=== PATIENT | male | born 1945 | race Caucasian/White ===

== ENCOUNTER 2019-12-08 13:19 | Outpatient (CLI) | payer MEDICARE, SELFPAY ==
--- NOTE | 2019-12-08 13:41 | ECHO_ITS ---
Patient Info Name: Kolton Smith Age: 74 years : 1945 Gender: Male Ht: 72 in Wt: 260 lbs BSA: 2.49 m2 HR: 67 bpm BP: 145 / 68 mmHg Heart Rhythm: Sinus Rhythm Technical Quality: Good Exam Date: 12/08/2019 2:01 PM Exam Location: [facility] Patient Status: Outpatient Admit Date: 12/08/2019 Staff Ordering Physician: Arcenio Viveros DO Telephone Clerk: Gerry Palacios RDCS, RT Attending Provider: Arcenio Viveros DO Referring Physician: Felice SALGADO; Exam Type: CA echo doppler color flow Study Info Indications I35.0 - Nonrheumatic aortic (valve) stenosis Complete two-dimensional, color flow and Doppler transthoracic echocardiogram is performed. Summary 1. Complete two-dimensional, color flow and Doppler transthoracic echocardiogram is performed. 2. Left ventricular chamber dimension is normal. 3. Left ventricular systolic function is normal, estimated at 60-65%. 4. There is moderately increased left ventricular wall thickness. 5. The left ventricular diastolic function is grade I diastolic dysfunction. 6. Left atrial chamber dimension is mildly enlarged. 7. There is mild aortic valve stenosis with a peak velocity of 264 cm/s, mean gradient of 14 mmHg, and aortic valve area of 1.8 cm2. 8. There is mild to moderate aortic valve regurgitation. 9. There is moderate aortic valve calcification. 10. There is mild tricuspid valve regurgitation. Left Ventricle Left ventricular chamber dimension is normal. Left ventricular systolic function is normal, estimated at 60-65%. There is moderately increased left ventricular wall thickness. The left ventricular diastolic function is grade I diastolic dysfunction. Right Ventricle Right ventricular chamber dimension is normal. Right ventricular systolic function is normal. Left Atria Left atrial chamber dimension is mildly enlarged. Right Atria Right atrial chamber dimension is normal. Atrial Septum Interatrial septum not well visualized by color flow imaging. Aortic Valve The aortic valve is trileaflet. There is mild aortic valve stenosis with a peak velocity of 264 cm/s, mean gradient of 14 mmHg, and aortic valve area of 1.8 cm2. There is mild to moderate aortic valve regurgitation. There is moderate aortic valve calcification. Pulmonic Valve The pulmonic valve is normal. There is no pulmonic valve stenosis. There is trace pulmonic regurgitation. Mitral Valve The mitral valve has thickened leaflets. There is no mitral valve stenosis. There is trace mitral valve regurgitation. Tricuspid Valve No pulmonary hypertension, estimated pulmonary arterial systolic pressure is 28 mmHg. The tricuspid valve leaflets are normal. There is no significant tricuspid valve stenosis. There is mild tricuspid valve regurgitation. Pericardium/Pleural The pericardium appears normal. There is no pericardial effusion. Inferior Vena Cava Normal inferior vena cava with >50% collapse upon inspiration consistent with normal right atrial pressure, 5 mmHg. Aorta The aortic root size at the sinus of Valsalva is normal. The prox ascending aorta size is normal. Left Ventricular Outflow Tract Name Value Normal LVOT 2D LVOT Diameter
== END 2019-12-08 13:20 | disposition home or self-care (01) ==
PROVIDERS: PCP Internal Medicine; Visit Provider Internal Medicine
DX: I35.0 Nonrheumatic aortic (valve) stenosis (principal); I35.1 Nonrheumatic aortic (valve) insufficiency; I36.1 Nonrheumatic tricuspid (valve) insufficiency
CPT/HCPCS: 93306

== ENCOUNTER 2022-02-07 11:56 | Emergency (ER) | payer MEDICARE, SELFPAY ==
[2022-02-07 12:30] VITALS: BP 150/70; PULSE 76; RESP 20; TEMP 36.6; O2SAT 99
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
== END 2022-02-07 15:05 | disposition home or self-care (01) ==
PROVIDERS: Emergency Provider Registered Nurse; PCP Internal Medicine
DX: T23.262A Burn of second degree of back of left hand, initial encounter (principal); T23.261A Burn of second degree of back of right hand, initial encounter; X08.8XXA Exposure to other specified smoke, fire and flames, initial encounter; E78.5 Hyperlipidemia, unspecified; I10 Essential (primary) hypertension; M10.9 Gout, unspecified; I35.0 Nonrheumatic aortic (valve) stenosis
CPT/HCPCS: 99213; G0463

== ENCOUNTER 2024-04-05 17:54 | Inpatient (IN) | payer MEDICARE, SELFPAY ==
[2024-04-05] VITALS (10 sets, daily range): BP systolic 123–145; BP diastolic 93–107; PULSE 66–137; RESP 18–25; TEMP 36.3–36.6; O2SAT 96–100; BMI 37.3; BMI 37.5
--- NOTE | ~2024-04-05 | XR_ITS ---
CHEST RADIOGRAPH, PA AND LATERAL CLINICAL HISTORY: CP . COMPARISON: 12/15/2009 TECHNIQUE: PA and lateral views of the chest. FINDINGS The cardiomediastinal silhouette is unremarkable. Blunting of the right costophrenic sulcus is identified suggesting a small right-sided pleural effusi on. Increased interstitial markings are identified bilaterally, findings suggesting mild pulmonary vascul ar congestion. The remainder of the lungs are clear. IMPRESSION: Mild pulmonary vascular congestion with small right-sided pleural effusion. Reviewed, dictated and finalized at location A. EVENT SPECIALIST
--- OUTSIDE RECORDS SUMMARY | 2024-04-05 17:57 | XMS_ITS | Clinical Summary ---
Author Organization [facility] Address [address] [place] [address] Care Team Providers Care Surveillance Sensor Officer Name Role Phone Unavailable Primary Care Provider Unavailabl e Source Comments [facility],non-owned Affiliates and Associated Physician Practices is amultiple site organization consisting of ambulatory clinics and hospital sitesin [place], [place], [place] and [place]. This disclosure is being madepursuant to the Care Everywhere program and may not contain all information available regarding this patient. Last updated 17.[facility] [employer] Social History Tobacco Use Types Packs/Day Years Used Date Smoking Tobacco: Never Assessed Sex and Gender Information Value Date Recorded Sex Assigned at Not on file Gender Identity Not on file Sexual Orientation Not on file Plan of Treatment Health Maintenance Due Date Last Done Comments HEPATITIS C SCREENING 09/15/1963 DTAP/TDAP/TD VACCINES (1 - Tdap) 1964 PNEUMOCOCCAL VACCINE 50+ (1 of 1 - PCV) 09/20/1995 ZOSTER VACCINE (1 of 2) 09/20/1995 Respiratory Syncytial Virus (RSV) Vaccine Pt: or over 60 yrs (1 - 1-dose 75+ series) 2020 COVID-19 VACCINE ( - 2023-2 5 season) 2023 INFLUENZA VACCINE (#1) 2023 DEPRESSION SCREENING 02/25/2024 MEDICARE AWV CALENDAR YEAR 2024 HEPATITIS B VACCINE Aged Out No longe r eligible based on patient's age to complete this topic HIB VACCINE Aged Out No longer eligi ble based on patient's age to complete this topic HPV VACCINE Aged Out No longer eligi ble based on patient's age to complete this topic MENINGOCOCCAL (Group B) VACCINE Aged Out No longer eligible based on patient's age to complete this topic MENINGOCOCCAL VACCINE Aged Out No karla tadeo eligible based on patient's age to complete this topic
--- OUTSIDE RECORDS SUMMARY | 2024-04-05 17:57 | XMS_ITS | Encounter Summary ---
Author Organization [facility] Address [address] [place] [address] Care Team Providers Care Engineering Mgr Name Role Phone Arcenio Viveros DO Primary Care Provider [phone]- [phone] Arcenio Viveros DO Primary Care Provider +1- [phone] Encounter Details Date Type Department Care Team (Late st Contact Info) Description 07/10/2016 Orders Only [facility] ProviderDarrin MD [address] [place] [id number] Social History Tobacco Use Types Packs/Day Years Used Date Smoking Tobacco: Never Assessed Sex and Gender Information Value Date Recorded Sex Assigned at Not on file 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 Historical Provider [facility] Final Result documented in this encounter Visit Diagnoses Not on filedocumented in this encounter Care Teams Engineering Mgr Relationship Specialty Start Date End Date Arcenio Viveros DO PCP - General 06/12/15 08/17/18 Arcenio Viveros DO PCP - General Internal Medicine 08/18/18 documented as of this encounter
--- OUTSIDE RECORDS SUMMARY | 2024-04-05 17:57 | XMS_ITS | Referral Summary ---
Author Organization [facility] Address [address] [place] [address] Care Team Providers Care Wood Carving Lathe Operator Name Role Phone Unavailable Primary Care Provider Unavailabl e Source Comments [facility],non-owned Affiliates and Associated Physician Practices is amultiple site organization consisting of ambulatory clinics and hospital sitesin [place], [place], [place] and [place]. This disclosure is being madepursuant to the Care Everywhere program and may not contain all information available regarding this patient. Last updated 17.[facility] [employer] Social History Tobacco Use Types Packs/Day Years Used Date Smoking Tobacco: Never Assessed Sex and Gender Information Value Date Recorded Sex Assigned at Not on file Gender Identity Not on file Sexual Orientation Not on file Plan of Treatment Not on file
--- OUTSIDE RECORDS SUMMARY | 2024-04-05 17:57 | XMS_ITS | Patient Health Summary ---
Author Organization [facility] Address [address] [place] [address] Care Team Providers Care Anesthetist Name Role Phone Unavailable Primary Care Provider Unavailabl e Note from [facility],non-owned Affiliates and Associated Physician Practices is amultiple site organization consisting of ambulatory clinics and hospital sitesin [place], [place], [place] and [place]. This disclosure is being madepursuant to the Care Everywhere program and may not contain all information available regarding this patient. Last updated 17.[facility] Social History Tobacco Use Types Packs/Day Years Used Date Smoking Tobacco: Never Assessed Sex and Gender Information Value Date Recorded Sex Assigned at Not on file Gender Identity Not on file Sexual Orientation Not on file Procedures * DERMATOPATHOLOGY(Performed 04/10/2022) * DERMATOPATHOLOGY(Performed 07/23/2013) * DERMATOPATHOLOGY(Performed 06/24/2013) Results * DERMATOPATHOLOGY (04/10/2022 3:33 AM CUSTOMS INVESTIGATOR) Only the most recent of3 resultswithin the time period is included. Case Report Dermatopathology Report Case: [id number] Authorizing Provider: Sajan Katz MD Collected: 04/10/2022 03:33 AM Ordering Location: [facility] Lab Received: 04/12/2022 07:43 AM Pathologist: Ilda Huitron MD Specimen: Skin, left episcopal 3 11:07 AM [facility] Final Diagnosis Specimen A. 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 The specimen consists of a shave biopsy measuring 8x7x1 mm. Jar 0. 11:07 AM [facility] Microscopic Description Specimen A. SKIN, left episcopal: The epidermis shows parakeratosis, full thickness disorderly maturation of keratinocytes, mitoses at different levels, and dyskeratotic cells. There is prominent pigmentation in some of the keratinocytes. 11:07 AM [facility] Disclaimer An external and internal positive and negative controls are appropriate for the histochemical, immunohistochemical and immunofluorescence stain(s) in this case (if any), except where stated explicitly. The performance characteristics of the stain(s) cited in this report were developed and its performance characteristic determined by the Dermatopathology Laboratory at [facility], directed by Dr. Jany Kumari. These tests need not be, and therefore are not, approved by the [place] Food and Drug Administration. The tests are used for clinical purposes. Billing Codes Specimen Charges Stain Charges 38700 1 3 11:07 AM [facility] Embedded Images 3 11:07 AM [facility] Pathology/Cytolo gy TISSUE SPECIMEN FROM SKIN / Unknown 04/10/2022 3:33 AM CUSTOMS INVESTIGATOR 04/12/2022 7:43 AM [facility] Sajan Katz MD LAB - PATHOLOGY/CYTO LOGY ORDERABLES DERMATOPATHOLOGY LABORATORY [facility] - Department of Dermatology [address], [address] [phone]
--- OUTSIDE RECORDS SUMMARY | 2024-04-05 17:57 | XMS_ITS | Encounter Summary ---
Author Organization [facility] Address [address] [place] [address] Care Team Providers Care Corporate Strategy Intern Name Role Phone Unavailable Primary Care Provider Unavailabl e Encounter Details Date Type Department Care Team (Late st Contact Info) Description 04/12/2022 Lab Requisition [facility] DermPath Lab [address] [place] [id number] Sajan Katz MD [address] [place] [address] Social History Tobacco Use Types Packs/Day Years Used Date Smoking Tobacco: Never Assessed Sex and Gender Information Value Date Recorded Sex Assigned at Not on file Gender Identity Not on file Sexual Orientation Not on file documented as of this encounter Plan of Treatment Not on file documented as of this encounter Procedures Procedure Name Priority Date/Time Associated Diagnosis Comments DERMATOPATHOLOGY Routine 04/10/2022 3:33 AM DOCUMENT REVIEW SPECIALIST documented in this encounter Results * DERMATOPATHOLOGY (04/10/2022 3:33 AM DOCUMENT REVIEW SPECIALIST) Case Report Dermatopathology Report Case: [id number] Authorizing Provider: Sajan Katz MD Collected: 04/10/2022 03:33 AM Ordering Location: [facility] DermPath Lab Received: 04/12/2022 07:43 AM Pathologist: Ilda Huitron MD Specimen: Skin, left jew 11:07 AM DOCUMENT REVIEW SPECIALIST DERMATOPATHOLOGY LABORATORY Final Diagnosis Specimen A. 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 The specimen consists of a shave biopsy measuring 8x7x1 mm. Jar 0. 3 11:07 AM [facility] DERMATOPATHOLOGY LABOR[facility]ORY Microscopic Description Specimen A. SKIN, left jew: The epidermis shows parakeratosis, full thickness disorderly maturation of keratinocytes, mitoses at different levels, and dyskeratotic cells. There is prominent pigmentation in some of the keratinocytes. 3 11:07 AM [facility] DERMATOPATHOLOGY [facility] Disclaimer An external and internal positive and negative controls are appropriate for the histochemical, immunohistochemical and immunofluorescence stain(s) in this case (if any), except where stated explicitly. The performance characteristics of the stain(s) cited in this report were developed and its performance characteristic determined by the Dermatopathology Laboratory at [facility], directed by Dr. Jany Kumari. These tests need not be, and therefore are not, approved by the [place] Food and Drug Administration. The tests are used for clinical purposes. Billing Codes Specimen Charges Stain Charges 49949 1 3 11:07 AM [facility] DERMATOPATHOLOGY [facility]ORATORY Embedded Images 3 11:07 AM [facility]MATOP[facility]Y [facility] Pathology/Cytolo gy TISSUE SPECIMEN FROM SKIN / Unknown 04/10/2022 3:33 AM DOCUMENT REVIEW SPECIALIST 04/12/2022 7:43 AM [facility] Sajan Katz MD LAB - PATHOLOGY/CYTO LOGY ORDERABLES DERMATOPATHOLOGY LABORATORY [facility] - Department of Dermatology [address], [address] [phone] documented in this encounter Visit Diagnoses Not on filedocumented in this encounter
--- OUTSIDE RECORDS SUMMARY | 2024-04-05 17:57 | XMS_ITS | Clinical Summary ---
Author Organization [facility] [address] Address [address] [place] [address] Care Team Providers Care Music Instructor Name Role Phone Arcenio Viveros DO Primary Care Provider +1- [phone] Allergies Active Allergy Reactions Criticality Noted Date Comments Penicillin G Rash Medium 09/09/2018 Penicillins Rash Medium 10/12/2019 Medications hydroCHLOROthi azide (HYDRODIURIL) 25 mg tablet Take 1 tablet (25 mg total) by mouth daily Active celecoxib (CeleBREX) 200 mg capsule Take 1 capsule (200 mg total) by mouth daily Active allopurinol (ZYLOPRIM) 300 mg tablet Take 100 mg by mouth daily Active lisinopril (PRINIVIL,ZEST RIL) 10 mg tablet Take 1 tablet (10 mg total) by mouth daily Active amlodipine-day rvastatin (CADUET) 5-40 mg per tablet 0 Active vitamins A,C,E-zinc-copy preparer per 7,160-113-100 etii-ka-vqzh tablet,delayed release (DR/EC) Take by mouth Active tcny-cxgrnu-xt lzujqv-Y2-V-Mn 500-400-667 mg-mg-unit capsule Take by mouth Active bacitracin 500 unit/gram ointment Apply topically daily 2 Active clindamycin (CLEOCIN) 300 mg capsule TAKE 1 CAPSULE BY MOUTH EVERY 8 HOURS 2 Active triamcinolone (KENALOG) 0.5 % cream triamcinolone acetonide 0.5 % topical cream 1 APPLIC TOPICAL DAILY NEEDED FOR DERMATITIS Active amLODIPine (NORVASC) 5 mg tablet Take 1 tablet (5 mg total) by mouth daily 4 Active atorvastatin (LIPITOR) 40 mg tablet Take 1 tablet (40 mg total) by mouth daily 4 Active benzonatate (TESSALON) 200 mg capsuleIndicat ions:Acute pansinusitis, recurrence not specified Take 1 capsule (200 mg total) by mouth 3 (three) times a day as needed for cough keep tessalon out of reach of children, especially children under the age of 10, due to possible serious risk such as if ingested by children under the age of 10. 30 capsule 4 Active Active Problems Problem Noted Date Diagnosed Date Osteoarthritis 11/21/2021 Arthralgia of right knee 09/26/2021 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/2019 Encounters Date Type Department Care Team Description 01/16/2024 Telephone [facility] Organization [address] [place] [id number] Annelise Vizcarra MA Successful Phone Call (Med adherence) 01/05/2024 Telephone [facility] Organization [address] [place] [id number] Liane Magallanes Unsuccessful Phone Call 1 ([facility] Med Adherence) 01/05/2024 ACO Quality [facility] Organization [address] [place] [phone] Samanta Mason from Last 3 Months Surgical History Surgery Date Site/Laterality Comments BACK SURGERY Medical History Medical History Date Comments Aortic stenosis Family History Relation Name Status Comments Father (Age 93) Mother (Age 92) Social History Tobacco Use Types Packs/Day Years Used Date Smoking Tobacco: Never Smokeless Tobacco: Current Alcohol Use Standard Drinks/Week Comments Yes 0 (1 standard drink = 0.6 oz pur e alcohol) 2 beer a day Sex and Gender Information Value Date Recorded Sex Assigned at Not on file 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 Gender Identity Not on file Sexual Orientation Not on file Obstetrics History Last Filed Vital Signs Vital Sign Reading Time Taken Comments Blood Pressure 136/80 12/22/2023 12:40 PM CDT Pulse 88 12/22/2023 12:40 PM CDT Temperature 36.8 C (98.3 F) 12/22/2023 11:48 AM CDT Respiratory Rate 18 12/22/2023 11:48 AM CDT Oxygen Saturation 96% 12/22/2023 12:40 PM CDT Inhaled Oxygen Concentration - - Weight 122 kg (269 lb) 12/22/2023 12:40 PM CDT Height 182.9 cm (6') 12/22/2023 12:40 PM CDT Body Mass Index 36.48 12/22/2023 12:40 PM CDT Plan of Treatment Health Maintenance Due Date Last Done Comments Depression Screening 1945 Fall Risk Assessment 1945 Hepatitis C Screening 1945 DTaP/Tdap/Td Vaccine (1 - Tdap) 1956 Hepatitis B Screening 09/20/1963 Zoster Vaccine (1 of 2) 09/20/1995 Pneumococcal vaccine 65+ (1 of 1 - PCV) 2010 Well Visit 65+ 2010 Influenza Vaccine (#1) 2023 01/01/2019, 2015 [place] [address] [place] [address] [place] [address] Care Teams Music Instructor Relationship Specialty Start Date End Date Arcenio Viveros DO PCP - General Internal Medicine 08/18/18
--- OUTSIDE RECORDS SUMMARY | 2024-04-05 17:57 | XMS_ITS | Referral Summary ---
Author Organization [facility] [place] [address] Address [address] [place] [address] Care Team Providers Care Fiber Optic Splicer Name Role Phone Arcenio Viveros DO Primary Care Provider +1- [phone] Encounters Date Type Department Care Team Description 01/16/2024 Telephone [facility] Accountable Care Organization [address] [place] [phone] Annelise Vizcarra MA Successful Phone Call (Med adherence) 01/05/2024 Telephone [facility] Accountable Care Organization [address] [place] [address] Liane Magallanes Unsuccessful Phone Call 1 ([facility] Med Adherence) 01/05/2024 ACO Quality [facility] Accountable Care Organization [address] [place] [address] Samanta Mason from Last 3 Months Allergies Active Allergy Reactions Criticality Noted Date [...] 5-40 mg per tablet 0 Active vitamins A,C,E-zinc-millinery copyist per 7,160-113-100 kgua-ht-hoha tablet,delayed release (DR/EC) Take by mouth Active lkjh-dgobeu-oi bvyhmp-P9-T-Mn 500400-667 mg-mg-unit capsule Take by mouth Active bacitracin [...] knee 09/26/2021 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/2019 Social History Tobacco Use Types Packs/Day Years Used Date Smoking Tobacco: Never Smokeless Tobacco: Current Alcohol Use Standard Drinks/Week Comments Yes 0 (1 standard drink = 0.6 oz pur e alcohol) 2 beer a day Sex and Gender Information Value Date Recorded Sex Assigned at Not on file 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
--- NOTE | 2024-04-05 18:01 | ECG_ITS ---
Test Date: 2024-04-05 18:05:27 Measurements Intervals [place] Rate: 126 P: 0 NE: 0 QRS: -32 QRSD: 90 T: 97 QT: 297 QTc: 430 Interpretive Statements ATRIAL FIBRILLATION WITH RAPID VENTRICULAR RESPONSE VENTRICULAR PREMATURE COMPLEX LEFT AXIS DEVIATION LOW QRS VOLTAGE IN PRECORDIAL LEADS CONSIDER INFERIOR INFARCT, AGE INDETERMINATE BORDERLINE ST-T WAVE ABNORMALITY- HIGH LATERAL LEADS BASELINE ARTIFACT- I, II, III, AVR, AVL, AVF, V1-V2, V4-V6 ABNORMAL ECG No previous ECG available for comparison Electronically Signed On 04-05-2024 20:27:42 WAREHOUSE GUARD by Santino Amaya D.O.
[2024-04-05 18:20] LABS: Basophils Percent Auto 0.5 % (0.2-1.2); Eosinophils Absolute Auto 0.3 K/mm3 (0-0.3); Eosinophils Percent Auto 4.3 % (0-4.4); Hemoglobin 14.7 g/dL (14.0-18.0); Immature Granulocyte Absolute 0.03 K/mm3 (0.00-0.031); Immature Granulocyte Percent A 0.5 % (0-0.5); Lymphocytes Absolute Auto 1.63 K/mm3 (0.9-3.2); Lymphocytes Percent Auto 24.8 % (18.3-44.2); Mean Corpuscular HGB Conc 34.2 g/dl (32-36); Mean Corpuscular Hemoglobin 32.4 pg (26-34); Mean Corpuscular Volume 94.7 fl (80-100); Mean Platelet Volume 10.7 fl (7.4-10.4); Monocytes Absolute Auto 0.9 K/mm3 (0.1-0.6); Monocytes Percent Auto 13.7 % (2.6-8.5); Neutrophils Absolute Auto 3.7 K/mm3 (1.3-6.7); Neutrophils Percent Auto 56.2 % (45.5-73.1); Platelet Count Result 205 k/mm3 (150-375); Red Blood Count 4.54 M/mm3 (4.6-6.20); White Blood Count 6.6 K/mm3 (4.5-10.0)
[2024-04-05 18:34] LABS: Prothrombin Time 12.9 Seconds (11.1-14.7)
[2024-04-05 18:35] LABS: Partial Thromboplastin Time 27.1 Seconds (22.3-36.8)
[2024-04-05] MEDS: dilTIAZem HCl INJ 25 MG/5 ML VIAL 10 MG IV PUSH (19:23)
[2024-04-05 19:32] LABS: Alanine Aminotransferase 38 U/L (6-50); Alkaline Phosphatase 63 U/L (38-126); Anion Gap 8 mmol/L (4-12); Aspartate Amino Transferase 30 U/L (17-59); Bilirubin,Total 0.7 mg/dL (0.2-1.3); Blood Urea Nitrogen 17 mg/dL (9-20); Calcium 9.1 mg/dL (8.4-10.2); Carbon Dioxide 22 mmol/L (22-30); Chloride 106 mmol/L (98-107); Estimated CRCL calculation 95 ml/min; Estimated Glomerular Filt Rate > 60; Glucose 88 mg/dL (65-110); Lipase 79 U/L (23-300); Potassium 3.9 mmol/L (3.4-5.0); Sodium 136 mmol/L (137-145)
[2024-04-05] MEDS: ASPIRIN 81 MG CHEWABLE TABLET 324 MG PO (19:41)
[2024-04-05 19:43] LABS: Troponin I < 0.012 ng/mL (0.000-0.034)
--- OUTSIDE RECORDS SUMMARY | 2024-04-05 19:46 | XMS_ITS | Encounter Summary ---
Author Organization [facility] Address [address] [place] [address] Care Team Providers Care Radiology Clerk Name Role Phone Unavailable Primary Care Provider Unavailabl e Encounter Details Date Type Department Care Team (Late st Contact Info) Description 04/12/2022 Lab Requisition [facility] DermPath Lab [address] [place] [id number] Sajan Katz MD [address] [address] Social History Tobacco Use Types Packs/Day [...] Diagnosis Comments DERMATOPATHOLOGY Routine 04/10/2022 3:33 AM LAMP DECORATOR documented in this encounter Results * DERMATOPATHOLOGY (04/10/2022 3:33 AM LAMP DECORATOR) Case Report Dermatopathology Report Case: [id number] Authorizing Provider: Sajan Katz MD Collected: 04/10/2022 03:33 AM Ordering Location: [facility] Derm[facility] Lab Received: 04/12/2022 07:43 AM Pathologist: Ilda Huitron MD Specimen: Skin, left jehovah's witness 11:07 AM LAMP DECORATOR DERMATOPATHOLOGY LABORATORY Final Diagnosis Specimen A. 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 DERMATOPATHOLOGY LABORATORY Clinical History Pigmented AK vs BCCA vs MM Path#[id number] 3 11:[address] [facility] DERMATOPATHOLOGY LABORATORY Gross Description Specimen A: Received is one formalin filled container labeled with the patient's name and designated left jehovah's witness. The specimen consists of a shave biopsy measuring 8x7x1 mm. Jar 0. 3 11:[address] [facility] DERMATOPATHOLOGY LABORATORY Microscopic Description Specimen A. SKIN, left jehovah's witness: The epidermis shows parakeratosis, full thickness disorderly maturation of keratinocytes, mitoses at different levels, and dyskeratotic cells. There is prominent pigmentation in some of the keratinocytes. 3 11:[address] [facility] DERMATOPATHOLOGY LABORATORY Disclaimer An external and internal positive and negative controls are appropriate for the histochemical, immunohistochemical and immunofluorescence stain(s) in this case (if any), except where stated explicitly. The performance characteristics of the stain(s) cited in this report were developed and its performance characteristic determined by the Dermatopathology Laboratory at [facility], directed by Dr. Jany Kumari. These tests need not be, and therefore are not, approved by the [place] Food and Drug Administration. The tests are used for clinical purposes. Billing Codes Specimen Charges Stain Charges 33670 1 3 11:[address] [facility] DERMATOPATHOLOGY LABORATORY Embedded Images 3 11:[address] [facility] DERMATOPATHOLOGY LABORATORY Pathology/Cytolo gy TISSUE SPECIMEN FROM SKIN / Unknown 04/10/2022 3:33 AM LAMP DECORATOR 04/12/2022 7:[address] [facility] Sajan Katz MD LAB - PATHOLOGY/CYTO LOGY ORDERABLES DERMATOPATHOLOGY LABORATORY [facility] - Department of Dermatology [address], [address] [phone] documented in this encounter Visit Diagnoses Not on filedocumented in this encounter
--- OUTSIDE RECORDS SUMMARY | 2024-04-05 19:46 | XMS_ITS | Referral Summary ---
Author Organization [facility] Address [address] [place] [address] Care Team Providers Care Stone Setter Apprentice Name Role Phone Unavailable Primary Care Provider Unavailabl e Source Comments [facility],non-owned Affiliates and Associated Physician Practices is amultiple site organization consisting of ambulatory clinics and hospital sitesin [place], [place], [place]. This disclosure is being madepursuant to the Care Everywhere program and may not contain all information available regarding this patient. Last updated 17.[facility] [employer] Social History Tobacco Use Types Packs/Day Years Used Date Smoking Tobacco: Never Assessed Sex and Gender Information Value Date Recorded Sex Assigned at Not on file Gender Identity Not on file Sexual Orientation Not on file Plan of Treatment Not on file
--- OUTSIDE RECORDS SUMMARY | 2024-04-05 19:46 | XMS_ITS | Patient Health Summary ---
Author Organization [facility] Address [address] [place] [address] Care Team Providers Care Plate Worker Name Role Phone Unavailable Primary Care Provider Unavailabl e Note from [facility],non-owned Affiliates and Associated Physician Practices is amultiple site organization consisting of ambulatory clinics and hospital sitesin [place], [place], [place] and [place]. This disclosure is being madepursuant to the Care Everywhere program and may not contain all information available regarding this patient. Last updated 17.[facility] [employer] Social History Tobacco Use Types Packs/Day Years Used Date Smoking Tobacco: Never Assessed Sex and Gender Information Value Date Recorded Sex Assigned at Not on file Gender Identity Not on file Sexual Orientation Not on file Procedures * DERMATOPATHOLOGY(Performed 04/10/2022) * DERMATOPATHOLOGY(Performed 07/23/2013) * DERMATOPATHOLOGY(Performed 06/24/2013) Results * DERMATOPATHOLOGY (04/10/2022 3:33 AM RETAIL PROPERTY MANAGER) Only the most recent of3 resultswithin the time period is included. Case Report Dermatopathology Report Case: [id number] Authorizing Provider: Sajan Katz MD Collected: 04/10/2022 03:33 AM Ordering Location: [facility] DermPath Lab Received: 04/12/2022 07:43 AM Pathologist: Ilda Huitron MD Specimen: Skin, left islam 3 11:07 AM [facility] DERMATOPATHOLOGY LABORATORY Final Diagnosis Specimen A. 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 The specimen consists of a shave biopsy measuring 8x7x1 mm. Jar 0. 11:07 AM [facility] DERMATOPATHOLOGY LABORATORY Microscopic Description Specimen A. SKIN, left islam: The epidermis shows parakeratosis, full thickness disorderly maturation of keratinocytes, mitoses at different levels, and dyskeratotic cells. There is prominent pigmentation in some of the keratinocytes. 11:07 AM [facility] DERMATOPATHOLOGY LABORATORY Disclaimer An external and internal positive and negative controls are appropriate for the histochemical, immunohistochemical and immunofluorescence stain(s) in this case (if any), except where stated explicitly. The performance characteristics of the stain(s) cited in this report were developed and its performance characteristic determined by the Dermatopathology Laboratory at [facility], directed by Dr. Jany Kumari. These tests need not be, and therefore are not, approved by the [place] Food and Drug Administration. The tests are used for clinical purposes. Billing Codes Specimen Charges Stain Charges 22667 1 3 11:07 AM [facility] DERMATOPATHOLOGY LABORATORY Embedded Images 3 11:07 AM [facility] DERMATOPATHOLOGY LABORATORY Pathology/Cytolo gy TISSUE SPECIMEN FROM SKIN / Unknown 04/10/2022 3:33 AM RETAIL PROPERTY MANAGER 04/12/2022 7:43 AM [facility] Sajan Katz MD LAB - PATHOLOGY/CYTO LOGY ORDERABLES DERMATOPATHOLOGY LABORATORY [facility] - Department of Dermatology [address] [phone]
--- OUTSIDE RECORDS SUMMARY | 2024-04-05 19:46 | XMS_ITS | Clinical Summary ---
Author Organization [facility] Address [address] [place] [address] Care Team Providers Care Fractionation Supervisor Name Role Phone Unavailable Primary Care Provider Unavailabl e Source Comments [facility],non-owned Affiliates and Associated Physician Practices is amultiple site organization consisting of ambulatory clinics and hospital sitesin [place], [place], [place] and [place]. This disclosure is being madepursuant to the Care Everywhere program and may not contain all information available regarding this patient. Last updated 17.[facility] [employer] Social History Tobacco Use Types Packs/Day Years [...]
--- OUTSIDE RECORDS SUMMARY | 2024-04-05 19:47 | XMS_ITS | Referral Summary ---
Author Organization [facility] [place] [address] Address [address] [place] [address] Care Team Providers Care Cloth Framer Name Role Phone Arcenio Viveros DO Primary Care Provider +1- [phone] Encounters Date Type Department Care Team Description 01/16/2024 Telephone [facility] Accountable Care Organization [address] [place] [phone] Annelise Vizcarra MA Successful Phone Call (Med adherence) 01/05/2024 Telephone [facility] Accountable Care Organization [address] [place] [phone] Liane Magallanes Unsuccessful Phone Call 1 ([facility] Med Adherence) 01/05/2024 ACO Quality [facility] Accountable Care Organization [address] [place] [phone] Samanta Mason from Last 3 Months Allergies [...] 5-40 mg per tablet 0 Active vitamins A,C,E-zinc-service technician copier per 7,160-113-100 vdbg-rq-buqp tablet,delayed release (DR/EC) Take by mouth Active zjvg-ptibll-ue ocxosp-M3-D-Mn 500400-667 mg-mg-unit capsule Take by mouth Active [...] on file 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
--- OUTSIDE RECORDS SUMMARY | 2024-04-05 19:47 | XMS_ITS | Clinical Summary ---
Author Organization [facility] [place] [address] Address [address] [place] [address] Care Team Providers Care Vest Presser Name Role Phone Arcenio Viveros DO Primary Care Provider +1- [phone] Allergies Active Allergy Reactions Criticality Noted Date [...] (10 mg total) by mouth daily Active amlodipine-dya rvastatin (CADUET) 5-40 mg per tablet 0 Active vitamins A,C,E-zinc-endoscope technician per 7,160-113-100 effv-jo-husi tablet,delayed release (DR/EC) Take by mouth Active hecu-eiuhbn-va hqjuft-F9-H-Mn 500-400-667 mg-mg-unit capsule Take by mouth Active [...] Type Department Care Team Description 01/16/2024 Telephone [facility] Care Organization [address] [place] [phone] Annelise Vizcarra MA Successful Phone Call (Med adherence) 01/05/2024 Telephone [facility] Care Organization [address] [place] [address] 227[address] Liane Magallanes Unsuccessful Phone Call 1 ([facility] Med Adherence) 01/05/2024 ACO Quality [facility] Care Organization [address] [place] [phone] Samanta Mason from Last 3 Months Surgical [...] on file 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
--- OUTSIDE RECORDS SUMMARY | 2024-04-05 19:47 | XMS_ITS | Encounter Summary ---
Author Organization [facility] Address [address] [place] [address] Care Team Providers Care Employment Case Manager Name Role Phone Arcenio Viveros DO Primary Care Provider +1- [phone] Arcenio Viveros DO Primary Care Provider +1- [phone] Encounter Details Date Type Department Care Team (Late st Contact Info) Description 07/10/2016 Orders Only [facility] ProviderDarrin MD [address] [place] [address] Social History Tobacco Use Types Packs/Day Years Used Date Smoking Tobacco: Never Assessed Sex and Gender Information Value Date Recorded Sex Assigned at Not on file 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
--- NOTE | 2024-04-05 19:57 | ED.CHESTPAIN ---
HPI - Chest Pain General Chief Complaint: Chest Pain Stated Complaint: chest pain, indigestion Time Seen by Provider: 04/05/24 18:54 History of Present Illness HPI narrative: 78-year-old male with a past medical history including hypertension, gout. Today presents to the emergency room with chief complaint of indigestion and tachypnea. He is expressing chest pain shortness a breath with exertion. Thinks he just been having indigestion. Symptoms are going on since [place] according to his . Patient states that for last 2 days he has been having worsening symptoms so he came to the ER for evaluation. In triage she initially had a pulse is 66 however was found also be in AFib RVR intermittently with heart rates into the 140s to 150s. He has no history of AFib, never had arrhythmia or any irregular heartbeat to his knowledge. Endorses indigestion symptoms for last 2 days but the shortness of breath and exertional chest pain have been going on for months. Denies any trauma, injuries, long travel, DVT or PE history. Does not take any aspirin any anticoagulants. Takes hydrochlorothiazide lisinopril and amlodipine for blood pressure. Was otherwise in his normal state of health. Denies any nausea, vomiting, back pain, abdominal pain, fever, chills, weakness or fatigue. Related Data Allergies Allergy/AdvReac Type Severity Reaction Status Date / Time Penicillins Allergy Unknown Unknown Verified 04/05/24 18:18 Review of Systems Review of Systems: As reviewed above in HPI [facility] Past Medical History Medical History Gout Hearing loss Hyperlipidemia Hypertension Aortic valve stenosis Family History Family History Mother Family history of cardiovascular disease, Onset Age: 93 Father Family history of Alzheimer's disease, Onset Age: 91 Social History Social History Social History: Caffeine- coffee 2 cups daily Smoking status: Never smoker Smokeless tobacco user: chewing tobacco Alcohol intake: current Drinks per week: 14 Alcohol use details: Pt drinks weekly.- Beer Substance use: never Substance use type: does not use Lack of Transportation: No Lack of Food: Sometimes True Current Housing: I Have Housing Concerned About Future Housing: No Difficulty Paying Gas/Electric Bills: No Difficulty Paying for Meds: No Currently Unemployed: Decline to Answer Education: Associate Degree Difficulty w/ Childcare or Family Care: No Exam Narrative: GENERAL: Morbidly obese but not any acute distress, no tachypnea or dyspnea. HEAD: [Normocephalic, atraumatic.] EYES: [PERRLA and EOMI.] ENT: Nares clear, no rhinorrhea or epistaxis. Mucous membranes moist. NECK: Supple. CHEST: [Clear to auscultation. No respiratory distress.] HEART: Irregular rate and irregular rhythm. No murmur heard. [Normal peripheral pulses.] ABDOMEN: [Soft, nondistended], [nontender], [No rigidity or guarding] EXTREMITIES: Normal range of motion. [No edema.] SKIN: Warm, dry, no rash. NEURO: [No focal deficits]. Alert and oriented [x3.] PSYCH: [Normal mood and affect.] Course Vital Signs Vital signs: Vital Signs Temperature 36.6 C 04/05/24 18:01 Pulse Rate 66 04/05/24 18:01 Respiratory Rate 20 04/05/24 18:01 Blood Pressure 123/107 H 04/05/24 18:01 Pulse Oximetry 100 04/05/24 18:01 Oxygen Delivery Room Air 04/05/24 18:01 Temperature 36.6 C 04/05/24 18:01 Pulse Rate 116 H 04/05/24 19:30 Respiratory Rate 25 H 04/05/24 19:30 Blood Pressure 145/104 H 04/05/24 19:01 Pulse Oximetry 97 04/05/24 19:30 Oxygen Delivery Room Air 04/05/24 18:17 MDM - Chest Pain MDM Narrative Medical decision making narrative: 78-year-old male with history of hypertension, hyperlipidemia and gout, aortic stenosis. Today presents with ongoing exertional chest pain difficulty breathing and indigestion. Reports burning pain in his chest for last 2 days he thinks his indigestion. Has been having exertional chest discomfort and shortness a breath for months. No reported history of AFib or irregular heartbeat but is found to be in AFib RVR in triage. EKG obtained shows a heart rate in the 130s. Irregular rate, no signs of acute ischemia. He was brought back for evaluation. Normal vital signs aside from his pulse rate, no hypoxia, fever, tachypnea or blood pressure concerns. He has strong symmetric pulses albeit irregular, no peripheral edema but he is morbidly obese. Differential includes new onset atrial fibrillation, ACS, electrolyte deficiency or disturbance, infectious process such as pneumonia. Patient likely has been having intermittent paroxysm is a AFib for the last few months according to the timeline he provides. No anticoagulation use, chads Vasc score of 3, has bled score of 1. Cardiac workup was ordered including serial troponins, EKG, chest x-ray, electrolyte panel, treatment was initiated with diltiazem 10 mg IV push. Patient responded nicely to diltiazem, has a heart rate in the 80s to 90s presently, blood pressure reassuring feeling less symptomatic. Workup shows no leukocytosis or anemia. Normal platelet count. Negative initial troponin. Normal coagulation study. D-dimer of 0.52 however he meets age adjusted D-dimer cutoff and years criteria so no need to proceed to CT angiography at this time. Electrolyte panel within normal limits, normal BUN and creatinine. X-ray shows some mild pulmonary vascular congestion, small right-sided pleural effusion. No reported history of heart failure however this could be causing his symptoms. Given patient's risk factors he was started on anticoagulation here including 5 mg of p.o. Eliquis b.i.d., 60 mg of diltiazem was given orally as he is now rate controlled. Will require further cardiac workup on inpatient basis. Patient will be admitted to a telemetry monitored bed. Spoke to the hospitalist Dr. Russ over the phone regarding patient's presentation, plan of care and current interventions. Patient is accepted the hospital under a telemetry monitored bed at this time, patient and family were made aware of the plan and comfortable with admission. Consult to Cardiology placed. Admit orders placed. Medical Records Data Attestation: I reviewed the patient's medical records. Lab Data Attestation: I reviewed the patient's lab results. 04/05/24 18:13 04/05/24 18:13 Labs: Lab Results 04/05/24 Range/Units 18:13 WBC 6.6 (4.5-10.0) K/mm3 RBC 4.54 L (4.6-6.20) M/mm3 Hgb 14.7 (14.0-18.0) g/dL Hct 43.0 (42.0-52.0) % MCV 94.7 (80-100) fl MCH 32.4 (26-34) pg MCHC 34.2 (32-36) g/dl RDW 14.0 (11.5-14.5) % Plt Count 205 (150-375) k/mm3 MPV 10.7 H (7.4-10.4) fl Immature Gran % (Auto) 0.5 (0-0.5) % Neut % (Auto) 56.2 (45.5-73.1) % Lymph % (Auto) 24.8 (18.3-44.2) % Pratt % (Auto) 13.7 H (2.6-8.5) % Eos % (Auto) 4.3 (0-4.4) % Baso % (Auto) 0.5 (0.2-1.2) % Lymph # (Auto) 1.63 (0.9-3.2) K/mm3 Pratt # (Auto) 0.9 H (0.1-0.6) K/mm3 Eos # (Auto) 0.3 (0-0.3) K/mm3 Baso # (Auto) 0.0 (0.0-0.1) K/mm3 Abs Immat Gran (auto) 0.03 (0.00-0.031) K/mm3 Absolute Neuts (auto) 3.7 (1.3-6.7) K/mm3 Absolute Nucleated RBC 0.000 (0.0-0.012) K/mm3 Nucleated RBC % 0.0 (0.0-0.2) % PT 12.9 (11.1-14.7) Seconds INR 1.0 APTT 27.1 (22.3-36.8) Seconds D-Dimer 0.52 H (<0.48) ug/mL Sodium 136 L (137-145) mmol/L Potassium 3.9 (3.4-5.0) mmol/L Chloride 106 (98-107) mmol/L Carbon Dioxide 22 (22-30) mmol/L Anion Gap 8 (4-12) mmol/L BUN 17 (9-20) mg/dL Creatinine 0.76 (0.7-1.3) mg/dL Estim Creat Clear Calc 95 ml/min Estimated GFR > 60 (59 - ) Glucose 88 (65-110) mg/dL Calcium 9.1 (8.4-10.2) mg/dL Total Bilirubin 0.7 (0.2-1.3) mg/dL AST 30 (17-59) U/L ALT 38 (6-50) U/L Alkaline Phosphatase 63 (38-126) U/L Troponin I < 0.012 (0.000-0.034) ng/mL Total Protein 7.0 (6.3-8.2) g/dL Albumin 4.0 (3.5-5.1) g/dL Lipase 79 (23-300) U/L Imaging Data Attestation: I personally reviewed and interpreted this imaging study as follows: My impression: Impressions Chest X-Ray 04/05/24 18:53 IMPRESSION: Mild pulmonary vascular congestion with small right-sided pleural effusion. ECG Data EKG #1: Attestation: I personally reviewed and interpreted this ECG as follows: ECG completion date: 04/05/24 ECG completion time: 18:05 Prior ECG tracings: not available for review Interpretation: Atrial fibrillation with rapid ventricular response, no ST segment elevations, depressions or signs of rate pain ischemia. No previous EKG for comparison. No P waves, QTC 430, QRS 90, overall interpretation AFib RVR. EKG Interpretation: atrial fibrillation Critical Care Time Critical Care Time Critical Care Time: Yes Total Critical Care Time: 35 Discharge Plan Discharge Clinical Impression: New onset a-fib, Atrial fibrillation with rapid ventricular response, History of aortic stenosis Patient Disposition: Still a Patient Condition: Stable Time of Disposition: 21:55
[2024-04-05 20:00] LABS: D Dimer 0.52 ug/mL (<0.48)
[2024-04-05] MEDS: dilTIAZem HCL 12 HR 60 MG CAP.12HR PO (20:28)
[2024-04-05] MEDS: APIXABAN 5 MG TABLET PO (20:29)
[2024-04-05] MEDS: FAMOTIDINE 20 MG/2 ML VIAL IV PUSH (21:40)
--- NOTE | 2024-04-05 22:11 | ECG_ITS ---
Test Date: 2024-04-05 22:14:29 Measurements Intervals [place] Rate: 104 P: 0 NE: 0 QRS: -24 QRSD: 76 T: 85 QT: 317 QTc: 418 Interpretive Statements ATRIAL FIBRILLATION WITH RAPID VENTRICULAR RESPONSE WITH ABERRANT CONDUCTION OR VENTRICULAR PREMATURE COMPLEXES LOW QRS VOLTAGE IN PRECORDIAL LEADS POSSIBLE ANTERIOR MYOCARDIAL INFARCTION , PROBABLY OLD INFERIOR INFARCT, AGE INDETERMINATE BORDERLINE ST-T WAVE ABNORMALITY- HIGH LATERAL LEADS BASELINE ARTIFACT- I, II, III, AVR, AVL, AVF, V1-V6 ABNORMAL ECG Compared to ECG 04/05/2024 18:05:27 HEART RATE HAS DECREASED Electronically Signed On 04-06-2024 10:36:20 [employer] [employer] by Santino Amaya D.O.
[2024-04-05 23:16] LABS: Troponin I < 0.012 ng/mL (0.000-0.034)
--- NOTE | 2024-04-05 23:47 | ADMGEN ---
This patient, Kolton Smith, was admitted to Medical Room 252-. Patient/family oriented to hospital policies and general routines including ID bracelet, bed and alarms, visiting hours, pain management, procedures, bathroom and other care routines, personal items, smoking policy, room service/diet, and visiting hours. Information on how to activate the Rapid Response Team has been discussed. Patient/Family are encouraged to report perceived risks to care and to ask questions if they do not understand what they are told or what they should do.
[2024-04-06] VITALS (13 sets, daily range): BP systolic 110–146; BP diastolic 53–92; PULSE 52–127; RESP 16–21; TEMP 36.3–36.7; O2SAT 95–100
--- NOTE | 2024-04-06 | ECHO_ITS ---
Patient Info Name: Kolton Smith Age: 78 years : 1945 Gender: Male Ht: 72 in Wt: 276 lbs BSA: 2.57 m2 HR: 85 bpm BP: 110 / 72 mmHg Heart Rhythm: Atrial Fibrillation Technical Quality: Poor Exam Date: 04/06/2024 11:38 AM Exam Location: Echo Lab Patient Status: Inpatient Admit Date: 04/05/2024 Staff Ordering Physician: Allegra Russ MD Chief Steward/Stewardess: Luis Beckman RDCS Attending Provider: Vandana Camejo APRN Exam Type: CA echo dop color flow w con Study Info Indications - AFIB Complete two-dimensional, color flow and Doppler transthoracic echocardiogram is performed with contrast to opacify the left ventricle and to improve the deliniation of the left ventricle endocardial borders. Contrast/Agitated Saline Contrast/Ag. Saline: Definity Amount: 2.00 ml Existing IV Access: Yes Reason for Poor Study: poor echocardiographic windows Summary 1. Left ventricular chamber dimension is normal. 2. Left ventricular systolic function is normal, estimated at 65-70%. 3. There is moderately increased left ventricular wall thickness. 4. Right ventricular systolic function is normal. 5. Left atrial chamber dimension is mildly enlarged. 6. Right atrial chamber dimension is mildly enlarged. 7. There is mild aortic valve stenosis with a peak velocity of 213.38 cm/s, mean gradient of 7 mmHg, and aortic valve area of 1.42 cm2. 8. There is mild tricuspid valve regurgitation. Left Ventricle Left ventricular chamber dimension is normal. Left ventricular systolic function is normal, estimated at 65-70%. There is moderately increased left ventricular wall thickness. The left ventricular diastolic function is abnormal. Right Ventricle Right ventricular chamber dimension is normal. Right ventricular systolic function is normal. Left Atria Left atrial chamber dimension is mildly enlarged. Right Atria Right atrial chamber dimension is mildly enlarged. Atrial Septum Intact interatrial septum visualized by color flow imaging. Aortic Valve The aortic valve is not well visualized. There is mild aortic valve stenosis with a peak velocity of 213.38 cm/s, mean gradient of 7 mmHg, and aortic valve area of 1.42 cm2. There is no aortic valve regurgitation. Pulmonic Valve The pulmonic valve is not well visualized. Mitral Valve There is trace mitral valve regurgitation. The mitral valve annulus is mildly calcified. Tricuspid Valve There is mild tricuspid valve regurgitation. Pericardium/Pleural The pericardium appears epicardial fat pad. There is no pericardial effusion. Inferior Vena Cava Dilated inferior vena cava with >50% collapse upon inspiration consistent with elevated right atrial pressure, 8 mmHg. Aorta The aortic root size at the sinus of Valsalva is normal. Left Ventricular Outflow Tract Name Value Normal LVOT 2D LVOT Diameter 1.96 cm LVOT Doppler LVOT Peak Gradient 4 mmHg LVOT Mean Gradient 2 mmHg LVOT VTI 21.67 cm LVOT VTI/AV VTI Ratio 0.47 LVOT Stroke Volume 65.59 ml LVOT CO 13.44 l/min LVOT CI 5.23 L/min/m2 Pulmonic Valve Name Value Normal RVOT Doppler RVOT Peak Gradient 2 mmHg PV Doppler PV Peak Gradient 2 mmHg Mitral Valve Name Value Normal MV Doppler MV Peak Gradient 8 mmHg MV Mean Gradient 3 mmHg MV Decel Reynolds 602.18 cm/s2 MV PHT 0 s MV Area (PHT) 4.60 cm2 4.00-5.00 MV Area (Cont Eq VTI) 1.76 cm2 MV Diastolic Function MV E Peak Velocity 99.37 cm/s MV A Peak Velocity 28.73 cm/s MV E/A 3.46 MV Decel Time 0 s MV Annular TDI MV E/e' (Septal) 10.64 <=8.00 MV E/e' (Lateral) 14.00 <=8.00 MV E/e' (Average) 12.32 Tricuspid Valve Name Value Normal TV Regurgitation Doppler TR Peak Velocity 252.85 cm/s TR Peak Gradient 26 mmHg Estimated PAP/RSVP RA Pressure 8 mmHg <=5 PA Systolic Pressure 34 mmHg <36 RV Systolic Pressure 34 mmHg <36 Aorta Name Value Normal Ascending Aorta Ao Root Diameter (MM) 2.76 cm Ao Root Diam Index (MM) 1.07 cm/m2 Aortic Valve Name Value Normal AV Doppler AV Peak Velocity 213.38 cm/s AV Peak Gradient 9 mmHg AV Mean Gradient 7 mmHg AV VTI 46.25 cm AV Area (Cont Eq VTI) 1.42 cm2 >=3.00 AV Area (Cont Eq Antonio) 2.03 cm2 AV Regurgitation 2D LVOT Area 3.03 cm2 Ventricles Name Value Normal LV Dimensions 2D/MM IVS Diastolic Thickness (2D) 1.11 cm 0.60-1.00 LVID Diastole (2D) 4.37 cm 4.20-5.80 LVIW Diastolic Thickness (2D) 1.72 cm 0.60-1.00 LVID Systole (2D) 2.60 cm 2.50-4.00 LVOT Diameter 1.96 cm LV Mass (2D Cubed) 242.43 g 88.00-224.00 LV Mass Index (2D Cubed) 0.01 g/cm2 0.00-0.01 Relative Wall Thickness (2D) 0.79 LV Fractional Shortening/Ejection Fraction 2D/MM LV Fractional Shortening (2D) 42 % 25-43 LV EF (2D Teicholz) 74 % 52-72 LV Diastolic Volume (4C MOD) 51.52 ml LV EF (4C MOD) 61 % LV Diastolic Volume (2C MOD) 64.53 ml LV EF (2C MOD) 72 % LV Diastolic Volume (BP MOD) 57.88 ml 62.00-150.00 LV Diastolic Volume Index (BP MOD) 0.02 l/m2 0.03-0.07 LV Systolic Volume (BP MOD) 19.60 ml 21.00-61.00 LV Systolic Volume Index (BP MOD) 0.01 l/m2 0.01-0.03 LV EF (BP MOD) 66 % 52-72 LV Diastolic Length (4C) 6.56 cm LV Systolic Length (4C) 5.27 cm LV Stroke Volume (4C MOD) 31.53 ml Atria Name Value Normal LA Dimensions LA Dimension (MM) 4.61 cm 3.00-4.10 LA Volume (4C A-L) 69.50 ml LA Volume (BP A-L) 74.40 ml RA Dimensions RA Area (4C) 26.62 cm2 <=18.00 Report Signatures
[2024-04-06] MEDS: dilTIAZem HCl INJ 25 MG/5 ML VIAL 10 MG IV PUSH (00:28)
--- NOTE | 2024-04-06 01:06 | PM.IMHP ---
H&P: HPI History of Present Illness Date/Time: 04/06/24 01:06 Chief Complaint: Shortness of breath Narrative: This is a pleasant 78-year-old male with a PMH hypertension, nonrheumatic aortic valve stenosis, obesity, gout, hyperlipidemia. He presents to [place] ER accompanied by his with complaint of progressive shortness of breath for 2 weeks. reports he has been more short of breath than usual upon minimal exertion. He denies feeling chest pain, however has palpitations intermittently. Denies smoking or alcohol use. He has been following with Dr. Connor in the outpatient setting for chronic hypertension and nonrheumatic aortic valve stenosis. Last visit in 2022 reviewed, at that time aortic valve stenosis was mild and not progressing. Patient also reports weight gain recently. ER evaluation demonstrated AFib with RVR on EKG and telemetry with heart rate of 130s. No acute ischemia identified. Troponin negative. Saturating well on room air. Patient given diltiazem 10 mg IV x1 in his heart rate responded appropriately into the 80s and 90s. Blood pressure acceptable. He was also given aspirin 324 mg p.o. x1 and diltiazem 60 mg p.o. x1 and Eliquis 5 mg p.o. x1. Review of Systems Review of Systems: All systems reviewed & are unremarkable except as noted in HPI and below (HPI) [facility]LY [facility], [facility] Past Medical History Medical History Gout Hearing loss Hyperlipidemia Hypertension Aortic valve stenosis Family History Family History Mother Family history of cardiovascular disease, Onset Age: 93 Father Family history of Alzheimer's disease, Onset Age: 91 Social History Social History Social History: Caffeine- coffee 2 cups daily Smoking status: Never smoker Smokeless tobacco user: chewing tobacco Alcohol intake: current Drinks per week: 10 Alcohol use details: Pt drinks weekly.- Beer Substance use: never Substance use type: does not use Do You Feel Safe in your Home?: Yes Lack of Transportation: No Lack of Food: Never True Current Housing: I Have Housing Concerned About Future Housing: No Difficulty Paying Gas/Electric Bills: No Difficulty Paying for Meds: No Currently Unemployed: No Education: Associate Degree Difficulty w/ Childcare or Family Care: No Spiritual care concerns: No Meds Home Medications and Allergies Home Medications ?Medication ?Instructions ?Recorded ?Confirmed ?Type allopurinol 100 mg tablet 100 mg PO DAILY #90 tabs 09/10/23 04/06/24 Rx hydrochlorothiazide 25 mg tablet 25 mg PO DAILY #90 tabs 12/08/23 04/06/24 Rx lisinopril 10 mg tablet See Rx Instructions .Route 12/08/23 04/06/24 Rx .COMPLEX #90 tabs amlodipine 5 mg tablet See Rx Instructions .Route 03/23/24 04/06/24 Rx .COMPLEX #90 tabs atorvastatin 40 mg tablet See Rx Instructions .Route 03/23/24 04/06/24 Rx .COMPLEX #90 tabs uyppotcjog-cfybbhnjue-salikuwm-hyalur 1 cap PO DAILY 04/06/24 04/06/24 History ac 375 mg-300 mg-175 mg-2 mg cap vitamins A,C,O-brhb-canrex 4,296 1 cap PO DAILY 04/06/24 04/06/24 History mcg-226 mg-90 mg capsule (PreserVision AREDS) Allergies Allergy/AdvReac Type Severity Reaction Status Date / Time Penicillins Allergy Unknown Unknown Verified 04/05/24 18:18 Vital Signs Vital Signs - 24 hr 04/05/24 18:01 04/05/24 18:17 04/05/24 19:00 Temperature 97.8 F Pulse Rate 66 124 H Respiratory Rate 20 18 Blood Pressure 123/107 H Pulse Oximetry 100 100 96 Oxygen Delivery Room Air Room Air 04/05/24 19:01 04/05/24 19:15 04/05/24 19:30 Temperature Pulse Rate 137 H 121 H 116 H Respiratory Rate 22 H 18 25 H Blood Pressure 145/104 H Pulse Oximetry 97 98 97 Oxygen Delivery 04/05/24 22:20 04/05/24 23:00 04/05/24 23:37 Temperature Pulse Rate 105 H 112 H 104 H Respiratory Rate 20 21 H Blood Pressure Pulse Oximetry 98 97 Oxygen Delivery 04/05/24 23:54 04/05/24 23:57 04/06/24 00:49 Temperature 97.3 F L Pulse Rate 68 104 H Respiratory Rate 20 21 H Blood Pressure 137/93 H 127/53 L Pulse Oximetry 98 97 Oxygen Delivery Room Air Exam Const: General: comfortable and no acute distress Other: Obese, A&O x3 Eyes: Pupils: Equal, round and reactive pupils present Resp: Effort & Inspection: normal respiratory effort Auscultation: clear to auscultation bilaterally Cardio: Rate: tachycardic Rhythm: abnormal rhythm GI: GI Palp: Yes Soft to palpation and No Tenderness to palpation present (GI) Extrem: General: edema Other: 1+ pitting edema bilateral lower extremities H&P: Results Labs Labs: Short CBC 04/05/24 Range/Units 18:13 WBC 6.6 (4.5-10.0) K/mm3 Hgb 14.7 (14.0-18.0) g/dL Hct 43.0 (42.0-52.0) % Plt Count 205 (150-375) k/mm3 BMP 04/05/24 18:13 Sodium 136 L Potassium 3.9 Chloride 106 Carbon Dioxide 22 BUN 17 Creatinine 0.76 Glucose 88 Calcium 9.1 Cardiac Enzymes 04/05/24 04/05/24 Range/Units 18:13 22:02 Troponin I < 0.012 < 0.012 (0.000-0.034) ng/mL Liver Function 04/05/24 Range/Units 18:13 Total Bilirubin 0.7 (0.2-1.3) mg/dL AST 30 (17-59) U/L ALT 38 (6-50) U/L Alkaline Phosphatase 63 (38-126) U/L Albumin 4.0 (3.5-5.1) g/dL Assessment and Plan Assessment and plan (1) Hypertension: Qualifiers: Hypertension type: primary hypertension Qualified Code(s): I10 - Essential (primary) hypertension Code(s): I10 - Essential (primary) hypertension Status: Acute (2) Aortic valve stenosis: Qualifiers: Cardiac valve disease etiology: etiology unspecified Qualified Code(s): I35.0 - Nonrheumatic aortic (valve) stenosis Code(s): I35.0 - Nonrheumatic aortic (valve) stenosis Status: Acute (3) New onset a-fib: Code(s): I48.91 - Unspecified atrial fibrillation Status: Acute Plan This is a pleasant 78-year-old male with a H hypertension, nonrheumatic aortic valve stenosis, obesity, gout, hyperlipidemia. He presents to [place] ER accompanied by his with complaint of progressive shortness of breath for 2 weeks. reports he has been more short of breath than usual upon minimal exertion. He denies feeling chest pain, however has palpitations intermittently. Denies smoking or alcohol use. He has been following with Dr. Connor in the outpatient setting for chronic hypertension and nonrheumatic aortic valve stenosis. Last visit in 2022 reviewed, at that time aortic valve stenosis was mild and not progressing. ER evaluation demonstrated AFib with RVR on EKG and telemetry with heart rate of 130s. No acute ischemia identified. Troponin negative. Saturating well on room air. Patient given diltiazem 10 mg IV x1 in his heart rate responded appropriately into the 80s and 90s. Blood pressure acceptable. He was also given aspirin 324 mg p.o. x1 and diltiazem 60 mg p.o. x1 and Eliquis 5 mg p.o. x1. ----- Upon arrival to the medical surgical floor his heart rate was back in the 130s. Patient reports feeling minimally short of breath and with palpitations. Giving another diltiazem 10 mg IV x1. Start diltiazem 30 mg p.o. q.6 hours. He has already been started on apixaban 5 mg p.o. b.i.d.. Cardiology was see the patient in consultation in the morning. Unclear how long the patient has had atrial fibrillation. Patient will remain NPO in case KYLE cardioversion is warranted in the setting of his aortic stenosis. Check TSH. 2D echocardiogram ordered. Patient has mild edema. Will give Lasix 20 mg IV x1. Restart [employer]IST hydrochlorothiazide 25 mg p.o. q.day as well. ----- Saline lock IV Daily weights, intake/output NPO Patient wishes to be full code Eliquis Home medications restarted as appropriate Hospitalist MIPS Advance Care Plan I have confirmed that the patient's Advanced Care Plan is present, code status is documented, or surrogate decision maker is listed in patient medical record.: Yes Medication Reconciliation I have utilized all available resources to obtain, update and review the patients current medications (includes all prescriptions, OTC, herbals, cannabis, and nutritional supplements).: Yes
[2024-04-06] MEDS: FUROSEMIDE INJ 40 MG/4 ML VIAL 20 MG IV PUSH (02:48)
[2024-04-06] MEDS: dilTIAZem HCL 30 MG TABLET PO ×3 (02:48→13:26)
[2024-04-06] MEDS: ATORVASTATIN 40 MG TABLET BY MOUTH ×2 (02:48→08:49)
[2024-04-06 03:35] LABS: Influenza A QL RT-PCR Negative (Negative); Influenza B QL RT-PCR Negative (Negative); RSV RNA, RT-PCR Negative (Negative); SARS-CoV-2 RNA PCR Negative (Negative)
[2024-04-06 06:07] LABS: Hematocrit 40.6 % (42.0-52.0); Hemoglobin 13.5 g/dL (14.0-18.0); Mean Corpuscular HGB Conc 33.3 g/dl (32-36); Mean Corpuscular Hemoglobin 31.7 pg (26-34); Mean Corpuscular Volume 95.3 fl (80-100); Mean Platelet Volume 10.9 fl (7.4-10.4); Platelet Count Result 173 k/mm3 (150-375); Red Blood Count 4.26 M/mm3 (4.6-6.20); Red Cell Distribution Width 14.1 % (11.5-14.5); White Blood Count 6.1 K/mm3 (4.5-10.0)
[2024-04-06 06:22] LABS: Anion Gap 8 mmol/L (4-12); Blood Urea Nitrogen 15 mg/dL (9-20); Calcium 8.7 mg/dL (8.4-10.2); Carbon Dioxide 25 mmol/L (22-30); Chloride 105 mmol/L (98-107); Estimated CRCL calculation 96 ml/min; Estimated Glomerular Filt Rate > 60; Glucose 96 mg/dL (65-110); Magnesium 1.7 mg/dL (1.6-2.3); Potassium 3.8 mmol/L (3.4-5.0); Sodium 138 mmol/L (137-145)
[2024-04-06] MEDS: allopurinoL 100 MG TABLET PO (08:49)
[2024-04-06] MEDS: APIXABAN 5 MG TABLET PO ×2 (08:49→20:21)
[2024-04-06] MEDS: hydroCHLOROthiazide 25 MG TABLET PO (08:49)
[2024-04-06] MEDS: PERFLUTREN LIPID MICROSPHERES 1.5 ML VIAL DILUTED TO 10 ML TOTAL VOLUME IV PUSH (12:25)
--- NOTE | 2024-04-06 13:05 | IVDEFINITY ---
Prior to administration of IV Definity the patient was educated on the risks and benefits of the imaging enhancing agent including potential adverse side effects. The patient verbalized understanding. Allergies were verified. No exclusion criteria were identified and at least one of the following inclusion criteria were met: 1) physician request, 2) patient technically difficult to image (per the [place] [employer] guidelines of two or more segments not discernable within the apical view), or 3) questionable left ventricular function. ?
--- NOTE | 2024-04-06 13:22 | P.CONCA_ITS ---
Assessment and Plan Assessment and plan (1) Atrial fibrillation with rapid ventricular response: Code(s): I48.91 - Unspecified atrial fibrillation Status: Acute Plan 1. Atrial fibrillation with RVR. New diagnosis of atrial fibrillation 2. Congestive heart failure 3. Hypertension 4. Hyperlipidemia PLAN: -Discussed atrial fibrillation diagnosis and management strategy with the patient, discussed rate control strategy vs rhythm control. At this time, will continue with PO Diltiazem for rate control. Agree with Eliquis 5mg BID. Echocardiogram ordered and pending. Patient will think about treatment options of rate control vs rhythm control and let us know which one he prefers. Did discuss doing inpatient KYLE-guided DCCV or outpatient DCCV after being anticoagulated for four weeks. -Has signs and symptoms of CHF with pulmonary edema, pleural effusion, lower extremity edema. Will give one time dose of IV Lasix. Please monitor strict I/Os. Will check NT pro BNP level. Echocardiogram to assess LVEF. If LVEF is reduced, then Diltiazem will need to be stopped. Will switch to Metoprolol then. -Hold home HCTZ since we are giving IV Lasix. History of Present Illness History of Present Illness Consult date/time: 04/06/24 13:22 Requesting physician: Yinka Myers MD Consult reason: atrial fibrillation Reason For Visit: New onset AFib RVR, Pulmonary vascular congestion, Narrative: We are consulted for atrial fibrillation with RVR. Kolton is a 78 year old male patient of Dr. Connor's with mild aortic stenosis, hypertension, hyperlipidemia who presented with shortness of breath over past few weeks. Has been noticing elevated heart rate, occasional chest tightness. Found to be in atrial fibrillation with RVR. Started on PO Diltiazem and is now rate controlled. Workup shows negative troponins x 2, normal TSH level. CXR shows mild pulmonary vascular congestion with small right sided pleural effusion. Review of Systems 2 Review of Systems: All systems reviewed & are unremarkable except as noted in HPI and below (HPI) [facility] Past Medical History Medical History Gout Hearing loss Hyperlipidemia Hypertension Aortic valve stenosis Family History Family History Mother Family history of cardiovascular disease, Onset Age: 93 Father Family history of Alzheimer's disease, Onset Age: 91 Social History Social History Social History: Caffeine- coffee 2 cups daily Smoking status: Never smoker Smokeless tobacco user: chewing tobacco Alcohol intake: current Drinks per week: 10 Alcohol use details: Pt drinks weekly.- Beer Substance use: never Substance use type: does not use Do You Feel Safe in your Home?: Yes Lack of Transportation: No Lack of Food: Never True Current Housing: I Have Housing Concerned About Future Housing: No Difficulty Paying Gas/Electric Bills: No Difficulty Paying for Meds: No Currently Unemployed: No Education: Associate Degree Difficulty w/ Childcare or Family Care: No Spiritual care concerns: No Meds Home Medications and Allergies Home Medications ?Medication ?Instructions ?Recorded ?Confirmed ?Type allopurinol 100 mg tablet 100 mg PO DAILY #90 tabs 09/10/23 04/06/24 Rx hydrochlorothiazide 25 mg tablet 25 mg PO DAILY #90 tabs 12/08/23 04/06/24 Rx lisinopril 10 mg tablet See Rx Instructions .Route 12/08/23 04/06/24 Rx .COMPLEX #90 tabs amlodipine 5 mg tablet See Rx Instructions .Route 03/23/24 04/06/24 Rx .COMPLEX #90 tabs atorvastatin 40 mg tablet See Rx Instructions .Route 03/23/24 04/06/24 Rx .COMPLEX #90 tabs sdbtkmmckq-xytvnxvmzu-ixunsafc-hyalur 1 cap PO DAILY 04/06/24 04/06/24 History ac 375 mg-300 mg-175 mg-2 mg cap vitamins A,C,E-otdl-tbqnzi 4,296 1 cap PO DAILY 04/06/24 04/06/24 History mcg-226 mg-90 mg capsule (PreserVision AREDS) Allergies Allergy/AdvReac Type Severity Reaction Status Date / Time Penicillins Allergy Unknown Unknown Verified 04/05/24 18:18 Vital Signs Vital Signs - 24 hr 04/05/24 18:01 04/05/24 18:17 04/05/24 19:00 Temperature 36.6 C Pulse Rate 66 124 H Respiratory Rate 20 18 Blood Pressure 123/107 H Pulse Oximetry 100 100 96 Oxygen Delivery Room Air Room Air 04/05/24 19:01 04/05/24 19:15 04/05/24 19:30 Temperature Pulse Rate 137 H 121 H 116 H Respiratory Rate 22 H 18 25 H Blood Pressure 145/104 H Pulse Oximetry 97 98 97 Oxygen Delivery 04/05/24 22:20 04/05/24 23:00 04/05/24 23:37 Temperature Pulse Rate 105 H 112 H 104 H Respiratory Rate 20 21 H Blood Pressure Pulse Oximetry 98 97 Oxygen Delivery 04/05/24 23:54 04/05/24 23:57 04/06/24 00:00 Temperature 36.3 C L Pulse Rate 68 104 H Respiratory Rate 20 Blood Pressure 137/93 H Pulse Oximetry 98 Oxygen Delivery Room Air 04/06/24 00:49 04/06/24 03:56 04/06/24 04:00 Temperature 36.6 C Pulse Rate 104 H 84 85 Respiratory Rate 21 H 16 Blood Pressure 127/53 L 110/72 Pulse Oximetry 97 98 Oxygen Delivery 04/06/24 08:00 04/06/24 08:51 Temperature Pulse Rate 77 Respiratory Rate 16 Blood Pressure Pulse Oximetry 96 96 Oxygen Delivery Room Air Exam 2 Const: General: no acute distress HENMT: Mouth: Yes moist mucous membranes Eyes: General: appearance normal, both eyes and all related structures S clera: sclerae normal Resp: Effort & Inspection: normal respiratory effort Auscultation: d iminished lung sounds Cardio: Rhythm: abnormal rhythm irregularly irregular Heart sounds: no murmurs Other: Mild lower extremity edema Skin: General skin exam: normal color Neuro: Speech: normal speech Psych: Mental Status: mental status grossly normal Affect: normal affect Results Labs and Meds 04/06/24 05:51 04/06/24 05:51 Lab results: Cardiac Enzymes 04/05/24 04/05/24 Range/Units 18:13 22:02 AST 30 (17-59) U/L Troponin I < 0.012 < 0.012 (0.000-0.034) ng/mL Coagulation 04/05/24 Range/Units 18:13 PT 12.9 (11.1-14.7) Seconds APTT 27.1 (22.3-36.8) Seconds CBC 04/05/24 04/06/24 Range/Units 18:13 05:51 WBC 6.6 6.1 (4.5-10.0) K/mm3 RBC 4.54 L 4.26 L (4.6-6.20) M/mm3 Hgb 14.7 13.5 L (14.0-18.0) g/dL Hct 43.0 40.6 L (42.0-52.0) % Plt Count 205 173 (150-375) k/mm3 Lymph # (Auto) 1.63 (0.9-3.2) K/mm3 [place] # (Auto) 0.9 H (0.1-0.6) K/mm3 Eos # (Auto) 0.3 (0-0.3) K/mm3 Baso # (Auto) 0.0 (0.0-0.1) K/mm3 Comprehensive Metabolic Panel 04/05/24 04/06/24 Range/Units 18:13 05:51 Sodium 136 L 138 (137-145) mmol/L Potassium 3.9 3.8 (3.4-5.0) mmol/L Chloride 106 105 (98-107) mmol/L Carbon Dioxide 22 25 (22-30) mmol/L BUN 17 15 (9-20) mg/dL Creatinine 0.76 0.75 (0.7-1.3) mg/dL Glucose 88 96 (65-110) mg/dL Calcium 9.1 8.7 (8.4-10.2) mg/dL AST 30 (17-59) U/L ALT 38 (6-50) U/L Alkaline Phosphatase 63 (38-126) U/L Total Protein 7.0 (6.3-8.2) g/dL Albumin 4.0 (3.5-5.1) g/dL Intake and Output 04/05/24 04/06/24 04/06/24 23:59 07:59 15:59 Intake Total 0 Output Total 500 Balance -500 0 Intake: Oral 0 Output: Urine 500 Patient Weight 04/06/24 23:59 Weight 125.5 kg
[2024-04-06] MEDS: FUROSEMIDE INJ 40 MG/4 ML VIAL IV PUSH (13:26)
--- NOTE | 2024-04-06 13:49 | PM.IMPN ---
Progress Note: A&P Assessment and Plan (1) New onset a-fib: Code(s): I48.91 - Unspecified atrial fibrillation Status: Acute Assessment and Plan: Patient follows with Dr. Connor outpatient for afib and aortic stenosis ER evaluation demonstrated AFib with RVR on EKG and telemetry with heart rate of 130s. No acute ischemia identified. Troponin negative. Saturating well on room air. Patient given diltiazem 10 mg IV x1 in his heart rate responded appropriately into the 80s and 90s. Blood pressure acceptable. He was also given aspirin 324 mg p.o. x1 and diltiazem 60 mg p.o. x1 and Eliquis 5 mg p.o. x1. Upon arrival to the medical surgical floor his heart rate was back in the 130s. Patient reports feeling minimally short of breath and with palpitations. Gave another diltiazem 10 mg IV x1 and started diltiazem 30 mg p.o. q.6 hours. He has already been started on apixaban 5 mg p.o. b.i.d. Unclear how long the patient has had atrial fibrillation. TSH normal, 2.8. Cardiology consulted, appreciate recommendations. Inpatient KYLE guided DCCV vs outpatient DCCV after 4 weeks of anticoagulation --Continuing PO diltiazem 30mg q6 --Continue eliquis 5mg BID --KYLE done today, results pending --s/p Lasix 20mg x1 yesterday, Lasix 40mg IV x1 today --Sleep apnea screen, apnea link (2) Hypertension: Qualifiers: Hypertension type: primary hypertension Qualified Code(s): I10 - Essential (primary) hypertension Code(s): I10 - Essential (primary) hypertension Status: Acute Assessment and Plan: Home meds: Amlodipine 5mg, Lisinopril 10mg, Hctz 25mg daily BP 110/72 this morning --Holding amlodipine and lisinopril --continued hctz --Dosing lasix IV prn, 20mg 04/05, 40mg 04/06 (3) Aortic valve stenosis: Qualifiers: Cardiac valve disease etiology: etiology unspecified Qualified Code(s): I35.0 - Nonrheumatic aortic (valve) stenosis Code(s): I35.0 - Nonrheumatic aortic (valve) stenosis Status: Acute Assessment and Plan: 04/06 TTE completed today, showed mild aortic valve stenosis, mild to moderate aortic valve regurg Plan Time Spent With Patient Time: 58 minutes Subjective Date/time seen: 04/06/24 13:49 Interval history: Feels shortness of breath improving, still mildly short of breath with activity. No chest pain or dizziness. HR intermittently elevated Cardiology discussing cardiology vs outpatient Review of Systems Review of Systems: All systems reviewed & are unremarkable except as noted in HPI and below (HPI) Exam Narrative: General - Awake and alert. No acute distress Eyes - PERRLA, EOM intact ENT - No thrush, No erythema Neck - No noticeable or palpable swelling Lymph Nodes - No lymphadenopathy Cardiovascular - RRR no m/r/g, no JVD Lungs: Rare crackles, No wheezing, no use of accessory muscles Skin - Skin warm and dry, no wounds or rashes Abdomen - Normal bowel sounds, abdomen soft and nontender Extremities - No edema, cyanosis or clubbing Musculoskeletal - 5/5 strength, normal range of motion, no swollen or erythematous joints. Neurological ? Alert and oriented x 3, CN 2-12 grossly intact. Psych: Normal mood and affect Objective Data Vital Signs Vital Signs: Vital Signs - 24 hr 04/05/24 18:01 04/05/24 18:17 04/05/24 19:00 Temperature 97.8 F Pulse Rate 66 124 H Respiratory Rate 20 18 Blood Pressure 123/107 H Pulse Oximetry 100 100 96 Oxygen Delivery Room Air Room Air 04/05/24 19:01 04/05/24 19:15 04/05/24 19:30 Temperature Pulse Rate 137 H 121 H 116 H Respiratory Rate 22 H 18 25 H Blood Pressure 145/104 H Pulse Oximetry 97 98 97 Oxygen Delivery 04/05/24 22:20 04/05/24 23:00 04/05/24 23:37 Temperature Pulse Rate 105 H 112 H 104 H Respiratory Rate 20 21 H Blood Pressure Pulse Oximetry 98 97 Oxygen Delivery 04/05/24 23:54 04/05/24 23:57 04/06/24 00:00 Temperature 97.3 F L Pulse Rate 68 104 H Respiratory Rate 20 Blood Pressure 137/93 H Pulse Oximetry 98 Oxygen Delivery Room Air 04/06/24 00:49 04/06/24 03:56 04/06/24 04:00 Temperature 97.9 F Pulse Rate 104 H 84 85 Respiratory Rate 21 H 16 Blood Pressure 127/53 L 110/72 Pulse Oximetry 97 98 Oxygen Delivery 04/06/24 08:00 04/06/24 08:51 Temperature Pulse Rate 77 Respiratory Rate 16 Blood Pressure Pulse Oximetry 96 96 Oxygen Delivery Room Air Intake/Output Intake/Output: Intake & Output 04/03/24 04/04/24 04/05/24 04/06/24 23:59 23:59 23:59 23:59 Intake Total 480 Output Total 500 Balance -20 Meds/Results Medications: Active Medications Generic Name Dose Route Start Last Admin Trade Name Freq PRN Reason Stop Dose Admin Acetaminophen 650 mg 04/05/24 20:13 Acetaminophen 325 Mg Tablet PO Q4H PRN Mild Pain (1-3) or Fever Allopurinol 100 mg 04/06/24 09:00 04/06/24 08:49 Allopurinol 100 Mg Tablet PO 100 mg DAILY ANDREI Administration Apixaban 5 mg 04/06/24 09:00 04/06/24 08:49 Apixaban 5 Mg Tablet PO 5 mg Q12HR ANDREI Administration Atorvastatin Calcium 40 mg 04/06/24 00:55 04/06/24 08:49 Atorvastatin 40 Mg Tablet BY MOUTH 40 mg DAILY ANDREI Administration Diltiazem HCl 30 mg 04/06/24 01:05 04/06/24 13:26 Diltiazem Hcl 30 Mg Tablet PO 30 mg Q6HR ANDREI Administration Ondansetron HCl 4 mg 04/05/24 20:13 Ondansetron Inj 4 Mg/2 Ml Vial IV PUSH Q4H PRN Nausea Radiology Results: ITS Impressions Chest X-Ray 04/05/24 18:53 IMPRESSION: Mild pulmonary vascular congestion with small right-sided pleural effusion. Labs Labs: Laboratory Results - last 24 hr 04/05/24 04/05/24 04/06/24 18:13 22:02 02:56 WBC 6.6 RBC 4.54 L Hgb 14.7 Hct 43.0 MCV 94.7 MCH 32.4 MCHC 34.2 RDW 14.0 Plt Count 205 MPV 10.7 H Immature Gran % (Auto) 0.5 Neut % (Auto) 56.2 Lymph % (Auto) 24.8 [place] % (Auto) 13.7 H Eos % (Auto) 4.3 Baso % (Auto) 0.5 Lymph # (Auto) 1.63 [place] # (Auto) 0.9 H Eos # (Auto) 0.3 Baso # (Auto) 0.0 Abs Immat Gran (auto) 0.03 Absolute Neuts (auto) 3.7 Absolute Nucleated RBC 0.000 Nucleated RBC % 0.0 PT 12.9 INR 1.0 APTT 27.1 D-Dimer 0.52 H Sodium 136 L Potassium 3.9 Chloride 106 Carbon Dioxide 22 Anion Gap 8 BUN 17 Creatinine 0.76 Estim Creat Clear Calc 95 Estimated GFR > 60 Glucose 88 Calcium 9.1 Magnesium Total Bilirubin 0.7 AST 30 ALT 38 Alkaline Phosphatase 63 Troponin I < 0.012 < 0.012 Total Protein 7.0 Albumin 4.0 Lipase 79 TSH (Reflex) Influenza A (RT-PCR) Negative Influenza B (RT-PCR) Negative RSV (RT-PCR) Negative SARS-CoV-2 RNA (RT-PCR) Negative 04/06/24 05:51 WBC 6.1 RBC 4.26 L Hgb 13.5 L Hct 40.6 L MCV 95.3 MCH 31.7 MCHC 33.3 RDW 14.1 Plt Count 173 MPV 10.9 H Immature Gran % (Auto) Neut % (Auto) Lymph % (Auto) [place] % (Auto) Eos % (Auto) Baso % (Auto) Lymph # (Auto) [place] # (Auto) Eos # (Auto) Baso # (Auto) Abs Immat Gran (auto) Absolute Neuts (auto) Absolute Nucleated RBC Nucleated RBC % PT INR APTT D-Dimer Sodium 138 Potassium 3.8 Chloride 105 Carbon Dioxide 25 Anion Gap 8 BUN 15 Creatinine 0.75 Estim Creat Clear Calc 96 Estimated GFR > 60 Glucose 96 Calcium 8.7 Magnesium 1.7 Total Bilirubin AST ALT Alkaline Phosphatase Troponin I Total Protein Albumin Lipase TSH (Reflex) 2.830 Influenza A (RT-PCR) Influenza B (RT-PCR) RSV (RT-PCR) SARS-CoV-2 RNA (RT-PCR) Quality VTE Prophylaxis VTE prophylaxis: mechanical ordered Hospitalist MIPS Advance Care Plan I have confirmed that the patient's Advanced Care Plan is present, code status is documented, or surrogate decision maker is listed in patient medical record.: Yes Medication Reconciliation I have utilized all available resources to obtain, update and review the patients current medications (includes all prescriptions, OTC, herbals, cannabis, and nutritional supplements).: Yes
[2024-04-06 14:43] LABS: NT Pro B Type Natriuretic Pept 819 pg/mL (19.9-100)
[2024-04-06] MEDS: METOPROLOL TARTRATE INJ 5 MG/5 ML VIAL IV PUSH (15:15)
[2024-04-06] MEDS: dilTIAZem HCL 60 MG TABLET PO ×2 (17:22→23:17)
[2024-04-07] VITALS: PULSE 106
[2024-04-07 04:00] VITALS: BP 133/71; PULSE 67; PULSE 85; RESP 20; TEMP 37.2; O2SAT 98
[2024-04-07] MEDS: dilTIAZem HCL 60 MG TABLET PO (05:28)
[2024-04-07 08:00] VITALS: BP 131/84; PULSE 126; PULSE 92; RESP 16; TEMP 36.3; O2SAT 97
[2024-04-07] MEDS: allopurinoL 100 MG TABLET PO (08:51)
[2024-04-07] MEDS: APIXABAN 5 MG TABLET PO (08:51)
[2024-04-07] MEDS: ATORVASTATIN 40 MG TABLET BY MOUTH (08:52)
--- NOTE | 2024-04-07 11:16 | P.PNCA_ITS ---
Progress Note: A&P Assessment and Plan (1) New onset a-fib: Code(s): I48.91 - Unspecified atrial fibrillation Status: Acute (2) Aortic valve stenosis: Qualifiers: Cardiac valve disease etiology: etiology unspecified Qualified Code(s): I35.0 - Nonrheumatic aortic (valve) stenosis Code(s): I35.0 - Nonrheumatic aortic (valve) stenosis Status: Acute Plan 78-year-old man with mild a aortic stenosis presenting with symptomatic atrial fibrillation probably at least 2-3 weeks in onset. His rate is better controlled with diltiazem. I will transition him in a at this time to long- acting diltiazem and plans are for discharge for the patient to be electrically cardioverted in 4-6 weeks. I will arrange that scheduled through my office today. If his rate is under adequate control later today he can be discharged for plans to cardiovert as mentioned. Reid Connor MD [facility] Subjective Date/time seen: Date of service: 04/07/24 11:16 Interval history: Follow-up visit in this 78-year-old man with: Mild aortic valve stenosis being followed for several years in the office. Admitted now with symptomatic atrial fibrillation of recent onset by symptoms probably onset 2-3 weeks ago. He is coming under good rate control with diltiazem and has been started on systemic anticoagulation. He feels well today and is hoping to be discharged. Long discussion with the patient about rate control versus rhythm control strategy. I would recommend attempting to restore sinus rhythm after 4-6 weeks of systemic anticoagulation. Exam Const: General: comfortable and no acute distress Other: Pleasant obese man no apparent distress HENMT: Mouth: Yes moist mucous membranes Eyes: Sclera: sclerae normal Neck: Neck: supple and no JVD Resp: Effort & Inspection: normal respiratory effort Other: Expiratory rhonchi noted bilaterally Cardio: Rate: tachycardic Rhythm: abnormal rhythm irregularly irregular GI: GI Palp: Yes Soft to palpation Auscultation: normal bowel sounds Skin: General skin exam: normal color Neuro: Other: Alert and oriented x3 Extrem: Other: No edema, good distal perfusion Objective Data Vital Signs Vital Signs: Vital Signs - 24 hr 04/06/24 12:00 04/06/24 12:00 04/06/24 15:15 Temperature 36.6 C Pulse Rate 91 52 L 127 H Respiratory Rate 18 Blood Pressure 131/84 Pulse Oximetry 97 Oxygen Delivery 04/06/24 16:00 04/06/24 16:00 04/06/24 19:39 Temperature 36.5 C 36.3 C L Pulse Rate 110 H 90 86 Respiratory Rate 18 20 Blood Pressure 146/78 H 138/92 H Pulse Oximetry 100 95 Oxygen Delivery 04/06/24 20:00 04/06/24 20:00 04/06/24 23:22 Temperature 36.7 C Pulse Rate 93 96 Respiratory Rate 20 Blood Pressure 137/75 Pulse Oximetry 98 Oxygen Delivery Room Air 04/07/24 00:00 04/07/24 04:00 04/07/24 04:00 Temperature 37.2 C Pulse Rate 106 H 85 67 Respiratory Rate 20 Blood Pressure 133/71 Pulse Oximetry 98 Oxygen Delivery 04/07/24 08:00 04/07/24 08:00 Temperature 36.3 C L Pulse Rate 92 Respiratory Rate 16 Blood Pressure 131/84 Pulse Oximetry 97 Oxygen Delivery Room Air Intake/Output Intake/Output: Intake & Output 04/04/24 04/05/24 04/06/24 04/07/24 23:59 23:59 23:59 23:59 Intake Total 720 920 Output Total 500 Balance 220 920 Meds/Results Medications: Active Medications Generic Name Dose Route Start Last Admin Trade Name Freq PRN Reason Stop Dose Admin Acetaminophen 650 mg 04/05/24 20:13 Acetaminophen 325 Mg Tablet PO Q4H PRN Mild Pain (1-3) or Fever Allopurinol 100 mg 04/06/24 09:00 04/07/24 08:51 Allopurinol 100 Mg Tablet PO 100 mg DAILY ANDREI Administration Apixaban 5 mg 04/06/24 09:00 04/07/24 08:51 Apixaban 5 Mg Tablet PO 5 mg Q12HR ANDREI Administration Atorvastatin Calcium 40 mg 04/06/24 00:55 04/07/24 08:52 Atorvastatin 40 Mg Tablet BY MOUTH 40 mg DAILY ANDREI Administration Ondansetron HCl 4 mg 04/05/24 20:13 Ondansetron Inj 4 Mg/2 Ml Vial IV PUSH Q4H PRN Nausea Radiology Results: ITS Impressions Chest X-Ray 04/05/24 18:53 IMPRESSION: Mild pulmonary vascular congestion with small right-sided pleural effusion. Labs Labs: Laboratory Results - last 24 hr 04/06/24 14:14 NT-Pro-B Natriuret Pep 819 H
[2024-04-07] MEDS: dilTIAZem HCL CD 300 MG CAP.24HR PO (11:58)
[2024-04-07 12:00] VITALS: BP 160/94; PULSE 121; PULSE 66; RESP 18; TEMP 36.4; O2SAT 96
--- NOTE | 2024-04-07 12:10 | PM.IMPN ---
Subjective Date/time seen: 04/07/24 1100 Objective Data Vital Signs Vital Signs: Vital Signs - 24 hr 04/06/24 15:15 04/06/24 16:00 04/06/24 16:00 Temperature 97.7 F Pulse Rate 127 H 110 H 90 Respiratory Rate 18 Blood Pressure 146/78 H Pulse Oximetry 100 Oxygen Delivery 04/06/24 19:39 04/06/24 20:00 04/06/24 20:00 Temperature 97.3 F L Pulse Rate 86 93 Respiratory Rate 20 Blood Pressure 138/92 H Pulse Oximetry 95 Oxygen Delivery Room Air 04/06/24 23:22 04/07/24 00:00 04/07/24 04:00 Temperature 98.0 F Pulse Rate 96 106 H 85 Respiratory Rate 20 Blood Pressure 137/75 Pulse Oximetry 98 Oxygen Delivery 04/07/24 04:00 04/07/24 08:00 04/07/24 08:00 Temperature 98.9 F 97.4 F L Pulse Rate 67 92 Respiratory Rate 20 16 Blood Pressure 133/71 131/84 Pulse Oximetry 98 97 Oxygen Delivery Room Air Intake/Output Intake/Output: Intake & Output 04/04/24 04/05/24 04/06/24 04/07/24 23:59 23:59 23:59 23:59 Intake Total 720 920 Output Total 500 Balance 220 920 Meds/Results Medications: Active Medications Generic Name Dose Route Start Last Admin Trade Name Freq PRN Reason Stop Dose Admin Acetaminophen 650 mg 04/05/24 20:13 Acetaminophen 325 Mg Tablet PO Q4H PRN Mild Pain (1-3) or Fever Allopurinol 100 mg 04/06/24 09:00 04/07/24 08:51 Allopurinol 100 Mg Tablet PO 100 mg DAILY ANDREI Administration Apixaban 5 mg 04/06/24 09:00 04/07/24 08:51 Apixaban 5 Mg Tablet PO 5 mg Q12HR ANDREI Administration Atorvastatin Calcium 40 mg 04/06/24 00:55 04/07/24 08:52 Atorvastatin 40 Mg Tablet BY MOUTH 40 mg DAILY ANDREI Administration Diltiazem HCl 300 mg 04/07/24 11:20 04/07/24 11:58 Diltiazem Hcl Cd 300 Mg Cap.24hr PO 300 mg QAM ANDREI Administration Ondansetron HCl 4 mg 04/05/24 20:13 Ondansetron Inj 4 Mg/2 Ml Vial IV PUSH Q4H PRN Nausea Radiology Results: ITS Impressions Chest X-Ray 04/05/24 18:53 IMPRESSION: Mild pulmonary vascular congestion with small right-sided pleural effusion. Labs Labs: Laboratory Results - last 24 hr 04/06/24 14:14 NT-Pro-B Natriuret Pep 819 H
--- NOTE | 2024-04-07 12:18 | P.DS_ITS ---
DS: Admitting Diagnosis Discharge Date 04/07/24 Admitting Diagnosis Atrial Fibrillation with RVR DS: Discharge Diagnosis Discharge Diagnosis (1) New onset a-fib: Code(s): I48.91 - Unspecified atrial fibrillation Status: Acute Assessment and Plan: Patient follows with Dr. Connor outpatient for afib and aortic stenosis ER evaluation demonstrated AFib with RVR on EKG and telemetry with heart rate of 130s. No acute ischemia identified. Troponin negative. Saturating well on room air. Patient given diltiazem 10 mg IV x1 in his heart rate responded appropriately into the 80s and 90s. Blood pressure acceptable. He was also given aspirin 324 mg p.o. x1 and diltiazem 60 mg p.o. x1 and Eliquis 5 mg p.o. x1. Upon arrival to the medical surgical floor his heart rate was back in the 130s. Patient reports feeling minimally short of breath and with palpitations. Gave another diltiazem 10 mg IV x1 and started diltiazem 30 mg p.o. q.6 hours. He has already been started on apixaban 5 mg p.o. b.i.d. Unclear how long the patient has had atrial fibrillation. TSH normal, 2.8. Cardiology consulted, appreciate recommendations. Inpatient KYLE guided DCCV vs outpatient DCCV after 4 weeks of anticoagulation --Continuing PO diltiazem 30mg q6 --Continue eliquis 5mg BID --KYLE done today, results pending --s/p Lasix 20mg x1 yesterday, Lasix 40mg IV x1 today --Sleep apnea screen, apnea link 04/07/24: * Evaluated by Cardiology, start Diltiazem HCL 300 mg every morning. * Continue Eliquis 5 mg BID * ECHO showing EF of 65-70% * OK to discharge per Dr. Connor and he will bring him back in 4-6 weeks for cardioversion. (2) Hypertension: Qualifiers: Hypertension type: primary hypertension Qualified Code(s): I10 - Essential (primary) hypertension Code(s): I10 - Essential (primary) hypertension Status: Acute Assessment and Plan: Home meds: Amlodipine 5mg, Lisinopril 10mg, Hctz 25mg daily BP 110/72 this morning --Holding amlodipine and lisinopril --continued hctz --Dosing lasix IV prn, 20mg 04/05, 40mg 04/0604/07/24: * Pt is stable with BP and heart rate. OK for discharge with instructions as in #1. (3) Aortic valve stenosis: Qualifiers: Cardiac valve disease etiology: etiology unspecified Qualified Code(s): I35.0 - Nonrheumatic aortic (valve) stenosis Code(s): I35.0 - Nonrheumatic aortic (valve) stenosis Status: Acute Assessment and Plan: 04/06 TTE completed today, showed mild aortic valve stenosis, mild to moderate aortic valve regurg 04/07/24: * Start Diltiazem CD 300 mg daily * Outpt Cardioversion in 4-[address] Connor. Plan DS: Summary Hospital Course Reason for hospitalization: Atrial Fibrillation with RVR Hospital Course: This is a pleasant 78-year-old male with a H hypertension, nonrheumatic aortic valve stenosis, obesity, gout, hyperlipidemia who presented to [place] [facility] accompanied by his with complaint of progressive shortness of breath for 2 weeks. reports he has been more short of breath than usual upon minimal exertion. He denies feeling chest pain, however has palpitations intermittently. Denies smoking or alcohol use. He has been following with Dr. Connor in the outpatient setting for chronic hypertension and nonrheumatic aortic valve stenosis. Last visit in 2022 reviewed, at that time aortic valve stenosis was mild and not progressing. Patient also reports weight gain recently. ER evaluation demonstrated AFib with RVR on EKG and telemetry with heart rate of 130s. No acute ischemia identified. Troponin negative. Saturating well on room air. Patient given diltiazem 10 mg IV x1 in his heart rate responded appropriately into the 80s and 90s. Blood pressure acceptable. He was also given aspirin 324 mg p.o. x1 and diltiazem 60 mg p.o. x1 and Eliquis 5 mg p.o. x1. He was admitted to the hospital for further workup and assessment and to have Cardiology consult. He has remained in stable condition with rate fairly controlled as well. He was seen today by Dr. Connor and he transitioned him to oral Diltiazem sustained release of 300 mg daily. He plans to bring him in for Cardioversion in 4-6 weeks and in the meantime will continue Eliquis and other medications. Pt has not had any complications related to his admission and he is now stable for discharge to home. Status at Discharge Cognitive/behavioral status at discharge: At baseline Functional status at discharge: independent ambulation Overall status at discharge: patient is back to baseline Time Spent with Patient Time attestation: Total time spent providing and/or coordinating discharge services: Time spent: Greater than 30 minutes Specific discharge activities: Follow up, medications Exam Narrative: General - Awake and alert. No acute distress Eyes - PERRLA, EOM intact ENT - No thrush, No erythema Neck - No noticeable or palpable swelling Lymph Nodes - No lymphadenopathy Cardiovascular - RRR no m/r/g, no JVD Lungs: Rare crackles, No wheezing, no use of accessory muscles Skin - Skin warm and dry, no wounds or rashes Abdomen - Normal bowel sounds, abdomen soft and nontender Extremities - No edema, cyanosis or clubbing Musculoskeletal - 5/5 strength, normal range of motion, no swollen or erythematous joints. Neurological ? Alert and oriented x 3, CN 2-12 grossly intact. Psych: Normal mood and affect DS: Data Data Completed and Pending Completed studies during hospitalization: ITS Impressions Chest X-Ray 04/05/24 18:53 IMPRESSION: Mild pulmonary vascular congestion with small right-sided pleural effusion. Labs on day of discharge: Labs from last 24 hours 04/06/24 14:14 NT-Pro-B Natriuret Pep 819 H Discharge Plan Discharge Attending physician on discharge: Gwendolyn Chaudhry Consulting providers: Reid Connor Discharging Clinician: Gwendolyn Chaudhry Anticipated Discharge Date/Time: 04/07/24 12:27 Patient Disposition: Home, Self-Care Activity: as tolerated Diet: heart healthy Discharge Instructions: Please take all medications as ordered. Follow up with Dr. Connor as directed and if any new or worsening symptoms in the meantime, return to the ER. Patient Language: Cymro Stand Alone Forms: General Discharge Information Follow-up/Referrals: Reid Connor MD [Physician] - Call for Appointment Arcenio Viveros DO [Primary Care Provider] - Call for Appointment Discharge Medications: New diltiazem HCl 300 mg Capsule,Extended Release 24hr 300 mg PO QAM Qty: 30 1RF Eliquis 5 mg Tablet 5 mg PO Q12HR Qty: 60 0RF Continued allopurinol 100 mg tablet 100 mg PO DAILY Qty: 90 0RF PreserVision AREDS 4,296 mcg-226 mg-90 mg capsule 1 cap PO DAILY glucosam-chond ri-elzrsc-xf ac [id number] mg capsule 1 cap PO DAILY lisinopril 10 mg tablet See Rx Instructions .ROUTE .COMPLEX Qty: 90 0RF Dose Instruction: TAKE 1 TABLET DAILY Rx Instructions: TAKE 1 TABLET DAILY. hydrochlorothiazide 25 mg tablet 25 mg PO DAILY Qty: 90 1RF atorvastatin 40 mg tablet See Rx Instructions .ROUTE .COMPLEX Qty: 90 3RF Dose Instruction: TAKE 1 TABLET BY MOUTH DAILY AT BEDTIME Rx Instructions: TAKE 1 TABLET BY MOUTH DAILY AT BEDTIME amlodipine 5 mg tablet See Rx Instructions .ROUTE .COMPLEX Qty: 90 3RF Dose Instruction: TAKE 1 TABLET BY MOUTH DAILY Rx Instructions: TAKE 1 TABLET BY MOUTH DAILY Date of admission: 04/05/24 20:13 Primary Care Provider: Arcenio Viveros Admitting Provider: Allegra Russ Attending physician on admission: Gwendolyn Chaudhry Condition: Stable Quality VTE Prophylaxis VTE prophylaxis: pharmacologic ordered Hospitalist MIPS Heart Failure (Exclusion) Patient has history of Heart Transplant or Left Ventricular Assistive Device?: No IF YES, STOP HERE Heart Failure (Qualifier) Patient has current or prior documentation of LVEF less than or equal to 40%, or mod/servere depressed LVSF?: No IF NO, STOP HERE
== END 2024-04-07 13:32 | disposition home or self-care (01) | DRG 310 ==
LOC: ANHED 19:44 → ANH3MEDSUR 20:35 → ANH2MED 23:18
PROVIDERS: Emergency Medicine; Internal Medicine; Admitting Provider General Practice; Emergency Provider Student in an Organized Health Care Education/Training Program; PCP Internal Medicine; Visit Provider Nurse Practitioner Adult Health
DX: I48.91 Unspecified atrial fibrillation (principal); I35.0 Nonrheumatic aortic (valve) stenosis; E78.5 Hyperlipidemia, unspecified; E66.01 Morbid (severe) obesity due to excess calories; M10.9 Gout, unspecified; I11.0 Hypertensive heart disease with heart failure; I50.9 Heart failure, unspecified; Z68.36 Body mass index [BMI] 36.0-36.9, adult
CPT/HCPCS: 36415; 71046; 80048; 80053; 83690; 83735; 83880; 84443; 84484; 85025; 85027; 85380; 85610; 85730; 87637; 93005; 94762; 96374; 96375; 99285; A9270; C8929; J1940; Q9957

== ENCOUNTER 2024-05-12 00:38 | Day surgery (SDC) | payer MEDICARE, SELFPAY ==
[2024-05-12] VITALS (10 sets, daily range): BP systolic 112–133; BP diastolic 74–97; PULSE 63–102; RESP 12–20; TEMP 36.4; O2SAT 94–98; BMI 35.9
--- OUTSIDE RECORDS SUMMARY | 2024-05-12 00:41 | XMS_ITS | Encounter Summary ---
Author Organization [facility] Health Address [address] [place] [address] Care Team Providers Care Wildlife Ecology Professor Name Role Phone Unavailable Primary Care Provider Unavailabl e Encounter Details Date Type Department Care Team (Late st Contact Info) Description 04/12/2022 Lab Requisition [facility] Derm[facility] Lab [address] [facility] [address] [facility], [facility] [place] [id number] Sajan Katz MD [address] [place] [address] Social History Tobacco Use Types Packs/Day [...] Diagnosis Comments DERMATOPATHOLOGY Routine 04/10/2022 3:33 AM SURVEILLANCE OBSERVER documented in this encounter Results * DERMATOPATHOLOGY (04/10/2022 3:33 AM SURVEILLANCE OBSERVER) Case Report Dermatopathology Report Case: [id number] Authorizing Provider: Sajan Katz MD Collected: 04/10/2022 03:33 AM Ordering Location: [facility] Derm[facility] Lab Received: 04/12/2022 07:43 AM Pathologist: Ilda Huitron MD Specimen: Skin, left anglican 11:07 AM SURVEILLANCE OBSERVER DERMATOPATHOLOGY LABORATORY Final Diagnosis Specimen A. 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 The specimen consists of a shave biopsy measuring 8x7x1 mm. Jar 0. 3 11:07 AM [facility] DERMATOPATHOLOGY LABORATORY Microscopic Description Specimen A. SKIN, left anglican: The epidermis shows parakeratosis, full thickness disorderly maturation of keratinocytes, mitoses at different levels, and dyskeratotic cells. There is prominent pigmentation in some of the keratinocytes. 3 11:07 AM [facility] DERMATOPATHOLOGY LABORATORY Disclaimer An external and internal positive and negative controls are appropriate for the histochemical, immunohistochemical and immunofluorescence stain(s) in this case (if any), except where stated explicitly. The performance characteristics of the stain(s) cited in this report were developed and its performance characteristic determined by the Dermatopathology Laboratory at [facility], directed by Dr. Jany Kumari. These tests need not be, and therefore are not, approved by the [place] Food and Drug Administration. The tests are used for clinical purposes. Billing Codes Specimen Charges Stain Charges 65150 1 3 11:07 AM [facility] DERMATOPATHOLOGY LABORATORY Embedded Images 3 11:07 AM [facility] DERMATOPATHOLOGY LABORATORY Pathology/Cytolo gy TISSUE SPECIMEN FROM SKIN / Unknown 04/10/2022 3:33 AM SURVEILLANCE OBSERVER 04/12/2022 7:43 AM [facility] Sajan Katz MD LAB - PATHOLOGY/CYTO LOGY ORDERABLES DERMATOPATHOLOGY LABORATORY [facility] - Department of Dermatology [address], [address] [phone] documented in this encounter Visit Diagnoses Not on filedocumented in this encounter
--- OUTSIDE RECORDS SUMMARY | 2024-05-12 00:41 | XMS_ITS | Encounter Summary ---
Author Organization [facility] Address [address] [place] [address] Care Team Providers Care Ekg/Ecg Technician Name Role Phone Arcenio Viveros DO Primary Care Provider + [phone] Arcenio Viveros DO Primary Care Provider +- [phone] Encounter Details Date Type Department Care Team (Late st Contact Info) Description 07/10/2016 Orders Only [facility] ProviderDarrin MD [address] [place] [id number] Social History Tobacco Use Types Packs/Day Years Used Date Smoking Tobacco: Never Assessed Sex and Gender Information Value Date Recorded Sex Assigned at Not on file Legal Sex Male 4:22 PM [employer]TER [employer] Gender Identity Not on file Sexual Orientation [...] on filedocumented in this encounter Care Teams Ekg/Ecg Technician Relationship Specialty Start Date End Date Arcenio Viveros DO PCP - General 06/12/15 08/17/18 Arcenio Viveros, PCP - General Internal Medicine 08/18/18 documented as of this encounter
--- OUTSIDE RECORDS SUMMARY | 2024-05-12 00:41 | XMS_ITS | Clinical Summary ---
Author Organization [facility] Address [address] [place] [address] Care Team Providers Care Maintenance Pipefitter Name Role Phone Unavailable Primary Care Provider Unavailabl e Source Comments [facility],non-owned Affiliates and Associated Physician Practices is amultiple site organization consisting of ambulatory clinics and hospital sitesin [place], [place], [place] and [place]. This disclosure is being madepursuant to the Care Everywhere program and may not contain all information available regarding this patient. Last updated 17.[facility] Social History Tobacco Use Types Packs/Day Years [...] to complete this topic MENINGOCOCCAL (Group B) VACC INE SHARED DECISION-MAKING Aged Out No longer eligibl e based on patient's age to complete this topic MENINGOCOCCAL GROUPS A/C/Y/W VACCINE Aged Out No longer eligible b ased on patient's age to complete this topic
--- OUTSIDE RECORDS SUMMARY | 2024-05-12 00:41 | XMS_ITS | Referral Summary ---
Author Organization [address] Address [address] [place] [address] Care Team Providers Care Data Warehouse Specialist Name Role Phone Arcenio Viveros DO Primary Care Provider [phone]- [phone] Encounters Date Type Department Care Team Description 05/07/[address] [facility] Medical [facility] Cardiology [address] [place] [address] [address] [place] [address] Mercy Hernandez NP 04/16/2024 Telephone [facility] Cardiology [address] [place] [address] [address] [place] [address] Mercy Hernandez NP 04/16/2024 2:00 PM TRANSPORTATION SALES CONSULTANT Ancillary Procedure [facility] Medical [facility] Cardiology at [address] [place] [address] Nonrheumatic aortic valve stenosis 04/15/[address] [facility] Medical [facility] Cardiology [address] [place] [address] [address] [place] [address] Jodee Phelps MD 04/15/2024 Telephone [facility] Cardiology [address] [place] [address] [address] [place] [address] Mercy Hernandez NP 04/15/2024 1:00 PM TRANSPORTATION SALES CONSULTANT Office Visit [facility] Cardiology [address] [place] [address] [address] [place] [address] Mercy Hernandez NP Persistent atrial fibrillation (HCC) (Primary Dx); Encounter for anticoagulation discussion and counseling; Class 2 severe obesity with body mass index (BMI) of 35 to 39.9 with serious comorbidity (HCC); Hospital discharge follow-up from Last 3 Months Allergies Active Allergy Reactions Criticality Noted Date Comments Penicillin G Rash Medium 09/09/2018 Penicillins Rash Medium 10/12/2019 Medications hydroCHLOROthia zide (HYDRODIURIL) 25 mg tablet Take 1 tablet (25 mg total) by mouth daily Active celecoxib (CeleBREX) 200 mg capsule Take 1 capsule (200 mg total) by mouth daily Active allopurinol (ZYLOPRIM) 300 mg tablet Take 100 mg by mouth daily Active lisinopril (PRINIVIL,ZESTR [place]) 10 mg tablet Take 1 tablet (10 mg total) by mouth daily Active vitamins A,C,E-zinc-roberto er 7,160-113-100 lqlh-dl-qnxa tablet,delayed release (DR/EC) Take by mouth Active cmke-yzfeyo-opw emfuj-I0-E-Mn 500-400-667 mg-mg-unit capsule Take by mouth Active bacitracin 500 unit/gram ointment Apply topically daily Active clindamycin (CLEOCIN) 300 mg capsule TAKE 1 CAPSULE BY MOUTH EVERY 8 HOURS Active triamcinolone (KENALOG) 0.5 % cream triamcinolone acetonide 0.5 % topical cream 1 APPLIC TOPICAL DAILY NEEDED FOR DERMATITIS Active amLODIPine (NORVASC) 5 mg tablet Take 1 tablet (5 mg total) by mouth daily Active atorvastatin (LIPITOR) 40 mg tablet Take 1 tablet (40 mg total) by mouth daily Active benzonatate (TESSALON) 200 mg capsuleIndicati ons:Acute pansinusitis, recurrence not specified Take 1 capsule (200 mg total) by mouth 3 (three) times a day as needed for cough keep tessalon out of reach of children, especially children under the age of 10, due to possible serious risk such as if ingested by children under the age of 10. 30 capsule Active Additional Information Patient not taking.Reported on 04/15/2024 dilTIAZem CD (CARDIZEM CD) 300 mg 24 hr capsuleIndicati ons:Persistent atrial fibrillation (HCC) Take 1 capsule (300 mg total) by mouth every morning 30 capsule 11 025 Active Eliquis 5 mg tabletIndicatio ns:atrial fibrillation Take 1 tablet (5 mg total) by mouth every 12 (twelve) hours 60 tablet 11 025 Active apixaban (ELIQUIS) 5 mg tabletIndicatio ns:atrial fibrillation Take 1 tablet (5 mg total) by mouth 2 (two) times a day 16 tablet Active amlodipine-ator vastatin (CADUET) 5-40 mg per tablet 020 2024 Discontinued(A lternate therapy) Eliquis 5 mg tablet Take 1 tablet (5 mg total) by mouth every 12 (twelve) hours 025 2024 Discontinued(R eorder) dilTIAZem CD (CARDIZEM CD) 300 mg 24 hr capsule Take 1 capsule (300 mg total) by mouth every morning 025 2024 Discontinued(R eorder) Eliquis 5 mg tabletIndicatio ns:Persistent atrial fibrillation (HCC) Take 1 tablet (5 mg total) by mouth every 12 (twelve) hours 60 tablet 11 025 2024 Discontinued Active Problems Problem Noted Date Diagnosed Date Osteoarthritis 11/21/2021 Arthralgia of right knee 09/26/2021 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/2019 Social History Tobacco Use Types Packs/Day Years Used Date Smoking Tobacco: Never Smokeless Tobacco: Current Tobacco Cessation:Ready to Q uit: Not Asked; Counseling Given: Not Answered Alcohol Use Standard Drinks/Week Comments Yes 0 (1 standard drink = 0.6 oz pur e alcohol) 2 beer a day Sex and Gender Information Value Date Recorded Sex Assigned at Not on file Legal Sex Male 4:22 PM TRANSPORTATION SALES CONSULTANT Gender Identity Not on file Sexual Orientation Not on file Last Filed Vital Signs Vital Sign Reading Time Taken Comments Blood Pressure 108/60 04/15/2024 1:06 PM TRANSPORTATION SALES CONSULTANT Pulse 86 04/15/2024 1:06 PM TRANSPORTATION SALES CONSULTANT Temperature 36.8 C (98.3 F) 12/22/2023 11:48 AM CDT Respiratory Rate 18 12/22/2023 11:48 AM CDT Oxygen Saturation 97% 04/15/2024 1:06 PM TRANSPORTATION SALES CONSULTANT Inhaled Oxygen Concentration - - Weight 119.7 kg (264 lb) 04/15/2024 1:06 PM TRANSPORTATION SALES CONSULTANT Height 182.9 cm (6') 04/15/2024 1:06 PM TRANSPORTATION SALES CONSULTANT Body Mass Index 35.8 04/15/2024 1:06 PM TRANSPORTATION SALES CONSULTANT Plan of Treatment Not on file Procedures Procedure Name Priority Date/Time Associated Diagnosis Comments TRANSTHORACIC ECHO (TTE) COMPLETE W DOPPLER/CF WO CONTRAST Routine 04/16/2024 2:34 PM TRANSPORTATION SALES CONSULTANT Nonrheumatic aortic valve stenosis CARDIOLOGY DOCUMENT SCAN Routine 04/07/2024 4:01 PM TRANSPORTATION SALES CONSULTANT CARDIOLOGY DOCUMENT SCAN Routine 04/06/2024 3:59 PM TRANSPORTATION SALES CONSULTANT from Last 3 Months Results * TRANSTHORACIC ECHO (TTE) COMPLETE W DOPPLER/CF WO CONTRAST (04/16/2024 2:34 PM TRANSPORTATION SALES CONSULTANT) LV EF 70-75 % CONS SCIMAGE Anatomical Region Laterality Modality Ultrasound 04/16/2024 2:00 PM TRANSPORTATION SALES CONSULTANT Narrative 04/16/2024 5:14 PM TRANSPORTATION SALES CONSULTANT [facility] Medical Group Cardiology [address] [facility], [address], [place] [address] P:[phone] P:[phone] Echocardiographic Report Patient Name: KOLTON SMITH L : 1945 Study Date: 04/16/2024 2:00:36 PM Gender: M Tech: Location: EDW Ref Provider: REID CONNOR Height(Cm): 183 BSA: 2.49 Weight(Kg): 122 Heart Rate: 85 BP: 136 / 80 Quality: Good Order Provider: REID CONNOR PROCEDURES: Echocardiographic Report: Transthoracic echocardiogram with complete 2D, M-Mode, and color Doppler examination. INDICATIONS: I35.0 Nonrheumatic aortic (valve) stenosis. MEASUREMENTS: 2D/MM Value Range Doppler Value Range EF Mod BP 68 % [ 52 - 72 ] ЮЛИЯ Vmax 1.54 cm2 [ 2.00 - 4.00 ] EF Teich MM 54 % [ 52 - 72 ] AV Mean PG 14 mmHg Estimated EF 70-75 % AV Peak Antonio 2.51 m/s [ 1.00 - 1.70 ] LVIDd 2D 4.91 cm [ 4.20 - 5.80 ] AV Peak PG 25 mmHg LVIDd MM 5.24 cm [ 4.20 - 5.80 ] AV VTI 41.58 cm LVIDs 2D 3.33 cm [ 2.50 - 4.00 ] LVOT Diam 1.99 cm [ 1.70 - 2.10 ] LVIDs MM 3.77 cm [ 2.50 - 4.00 ] LVOT Peak Antonio 1.16 m/s [ 0.70 - 1.10 ] LVPWd 2D 1.18 cm [ 0.60 - 1.00 ] LVOT VTI 22.07 cm LVPWd MM 0.92 cm [ 0.60 - 1.00 ] MV E Peak Antonio 1.13 m/s [ 0.60 - 1.30 ] IVSd 2D 0.93 cm [ 0.60 - 1.00 ] MV Decel Time 298 msec [ 104 - 258 ] IVSd MM 0.89 cm [ 0.60 - 1.00 ] PV Peak Antonio 1.28 m/s [ 0.40 - 0.80 ] LA Dimension MM 4.96 cm [ 3.00 - 4.00 ] TR Peak Antonio 2.94 m/s [ 1.00 - 2.80 ] AoR Diam MM 3.29 cm [ 3.10 - 3.70 ] TR Peak PG 35 mmHg LA Volume Index 25 cc/m2 [ 16 - 34 ] RVSP 43.00 mmHg [ 10.00 - 36.00 ] Lateral E` 0.09 m/s [ 0.10 - 0.15 ] E/E` 13 2D/MM Value Range Doppler Value Range - FINDINGS: Interpretation Site: Exam was interpreted at [facility]. Left Ventricle: Normal left ventricular systolic function. No focal wall motion abnormalities. Normal left ventricular size. Left ventricular wall thickness upper limits of normal. Indeterminate diastolic function. Ejection fraction is measured at 68 %. Ejection Fraction is visually estimated to be 70-75 %. Right Ventricle: Normal right ventricular size. Normal right ventricular systolic function. Left Atrium: There is moderate enlargement of left atrium. Right Atrium: There is mild enlargement of right atrium. Atrial Septum: Normal atrial septum. Mitral Valve: Mild mitral annular calcification. Trivial regurgitation of the mitral valve. There is no hemodynamically significant mitral stenosis by Doppler. Aortic Valve: Mild to moderate aortic stenosis. Peak Velocity of 2.51 m/s. Peak gradient of 25.0 mmHg. Mean gradient of 14.0 mmHg. Valve area of 1.5 cm2. Aortic cusps appear moderately calcified. Trileaflet aortic valve. Mild aortic valve regurgitation. Tricuspid Valve: Normal appearance of the tricuspid valve. Mild pulmonary hypertension based on right ventricular systolic pressure. Estimated peak RVSP is 43 mmHg. Mild tricuspid regurgitation. Pulmonic Valve: Normal appearance of the pulmonic valve. No pulmonic stenosis. Trivial regurgitation in the pulmonic valve. Pericardium: Normal pericardium with no significant pericardial effusion. Aorta: Normal aortic root. IVC: Normal size and normal respiratory collapse consistent with normal right atrial pressure (<5 mmHg). CONCLUSIONS: Normal left ventricular systolic function. No focal wall motion abnormalities. Normal left ventricular size. Left ventricular wall thickness upper limits of normal. Indeterminate diastolic function. Ejection fraction is measured at 68 %. Ejection Fraction is visually estimated to be 70-75 %. There is moderate enlargement of left atrium. There is mild enlargement of right atrium. Mild to moderate aortic stenosis. Peak Velocity of 2.51 m/s. Peak gradient of 25.0 mmHg. Mean gradient of 14.0 mmHg. Valve area of 1.5 cm2. Aortic cusps appear moderately calcified. Trileaflet aortic valve. Mild aortic valve regurgitation. Mild pulmonary hypertension based on right ventricular systolic pressure. Estimated peak RVSP is 43 mmHg. Mild tricuspid regurgitation. Atrial fibrillation. Electronically Signed By: Dariel Arevalo MD 04/16/2024 5:13:54 PM TRANSPORTATION SALES CONSULTANT Procedure Note Dariel Arevalo MD - 04/16/2024 [facility] Medical Group Cardiology [address], [address], [place] [address] P:[phone] P:[phone] Echocardiographic Report Patient Name: KOLTON SMITH L : 1945 Study Date: 04/16/2024 2:00:36 PM Gender: M Tech: Location: EDW Ref Provider: REID CONNOR Height(Cm): 183 BSA: 2.49 Weight(Kg): 122 Heart Rate: 85 BP: 136 / 80 Quality: Good Order Provider: REID CONNOR PROCEDURES: Echocardiographic Report: Transthoracic echocardiogram with complete 2D, M-Mode, and color Dopplerexamination. INDICATIONS: I35.0 Nonrheumatic aortic (valve) stenosis. MEASUREMENTS: 2D/MM Value Range Doppler ValueRange EF Mod BP 68 % [ 52 - 72 ] ЮЛИЯ Vmax 1.54cm2 [ 2.00 - 4.00 ] EF Teich MM 54 % [ 52 - 72 ] AV Mean PG 14mmHg Estimated EF 70-75 % AV Peak Antonio 2.51m/s [ 1.00 - 1.70 ] LVIDd 2D 4.91 cm [ 4.20 - 5.80 ] AV Peak PG 25mmHg LVIDd MM 5.24 cm [ 4.20 - 5.80 ] AV VTI 41.58cm LVIDs 2D 3.33 cm [ 2.50 - 4.00 ] LVOT Diam 1.99 cm[ 1.70 - 2.10 ] LVIDs MM 3.77 cm [ 2.50 - 4.00 ] LVOT Peak Antonio 1.16m/s [ 0.70 - 1.10 ] LVPWd 2D 1.18 cm [ 0.60 - 1.00 ] LVOT VTI 22.07cm LVPWd MM 0.92 cm [ 0.60 - 1.00 ] MV E Peak Antonio 1.13m/s [ 0.60 - 1.30 ] IVSd 2D 0.93 cm [ 0.60 - 1.00 ] MV Decel Time 298msec [ 104 - 258 ] IVSd MM 0.89 cm [ 0.60 - 1.00 ] PV Peak Antonio 1.28m/s [ 0.40 - 0.80 ] LA Dimension MM 4.96 cm [ 3.00 - 4.00 ] TR Peak Antonio 2.94m/s [ 1.00 - 2.80 ] AoR Diam MM 3.29 cm [ 3.10 - 3.70 ] TR Peak PG 35mmHg LA Volume Index 25 cc/m2 [ 16 - 34 ] RVSP 43.00mmHg [ 10.00 - 36.00 ] Lateral E` 0.09 m/s [ 0.10 - 0.15 ] E/E` 13 2D/MM Value Range Doppler ValueRange - FINDINGS: Interpretation Site: Exam was interpreted at [facility]. Left Ventricle: Normal left ventricular systolic function. No focal wall motionabnormalities. Normal left ventricular size. Left ventricular wall thickness upper limits ofnormal. Indeterminate diastolic function. Ejection fraction is measured at 68 %.Ejection Fraction is visually estimated to be 70-75 %. Right Ventricle: Normal right ventricular size. Normal right ventricular systolicfunction. Left Atrium: There is moderate enlargement of left atrium. Right Atrium: There is mild enlargement of right atrium. Atrial Septum: Normal atrial septum. Mitral Valve: Mild mitral annular calcification. Trivial regurgitation of the mitralvalve. There is no hemodynamically significant mitral stenosis by Doppler. Aortic Valve: Mild to moderate aortic stenosis. Peak Velocity of 2.51 m/s. Peak gradientof 25.0 mmHg. Mean gradient of 14.0 mmHg. Valve area of 1.5 cm2. Aortic cusps appearmoderately calcified. Trileaflet aortic valve. Mild aortic valve regurgitation. Tricuspid Valve: Normal appearance of the tricuspid valve. Mild pulmonary hypertensionbased on right ventricular systolic pressure. Estimated peak RVSP is 43 mmHg. Mildtricuspid regurgitation. Pulmonic Valve: Normal appearance of the pulmonic valve. No pulmonic stenosis. Trivialregurgitation in the pulmonic valve. Pericardium: Normal pericardium with no significant pericardial effusion. Aorta: Normal aortic root. IVC: Normal size and normal respiratory collapse consistent with normal rightatrial pressure (<5 mmHg). CONCLUSIONS: Normal left ventricular systolic function. No focal wall motionabnormalities. Normal left ventricular size. Left ventricular wall thickness upper limits ofnormal. Indeterminate diastolic function. Ejection fraction is measured at 68 %.Ejection Fraction is visually estimated to be 70-75 %. There is moderate enlargement of left atrium. There is mild enlargement of right atrium. Mild to moderate aortic stenosis. Peak Velocity of 2.51 m/s. Peak gradientof 25.0 mmHg. Mean gradient of 14.0 mmHg. Valve area of 1.5 cm2. Aortic cusps appearmoderately calcified. Trileaflet aortic valve. Mild aortic valve regurgitation. Mild pulmonary hypertension based on right ventricular systolic pressure.Estimated peak RVSP is 43 mmHg. Mild tricuspid regurgitation. Atrial fibrillation. Electronically Signed By: Dariel Arevalo MD 04/16/2024 5:13:54 PM TRANSPORTATION SALES CONSULTANT us Reid Connor MD CV ECHO PROCEDURES Final Result * Cardiology Document Scan (04/07/2024 4:01 PM TRANSPORTATION SALES CONSULTANT) Anatomical Region Laterality Modality Other us Reid Connor MD CV CARDIAC SERVICES PROC EDURES Final Result * Cardiology Document Scan (04/06/2024 3:59 PM TRANSPORTATION SALES CONSULTANT) Anatomical Region Laterality Modality Other us Jodee Phelps MD CV CARDIAC SERVICES PRO CEDURES Final Result from Last 3 Months Insurance MEDICARE SOLUTIONS MEDICARE [employer]UTIONS MEDICARE [employer] Care Teams Data Warehouse Specialist Relationship Specialty Start Date End Date Arcenio Viveros DO PCP - General Internal Medicine 08/18/18
--- OUTSIDE RECORDS SUMMARY | 2024-05-12 00:41 | XMS_ITS | Clinical Summary ---
Author Organization [facility] [address] Address [address] [place] [address] Care Team Providers Care Dental Appliance Mechanic Name Role Phone Arcenio Viveros DO Primary Care Provider +1- [phone] Allergies Active Allergy Reactions Criticality Noted Date [...] mouth daily Active vitamins A,C,E-zinc-roberto er 7,160-113-100 agta-mn-pqmy tablet,delayed release (DR/EC) Take by mouth Active xoma-ythbzn-xdb ijbcf-V5-G-Mn 500-400-667 mg-mg-unit capsule Take by mouth Active bacitracin 500 unit/gram ointment Apply topically daily 022 Active clindamycin (CLEOCIN) 300 mg capsule TAKE 1 CAPSULE BY MOUTH EVERY 8 HOURS 022 Active triamcinolone (KENALOG) 0.5 % cream triamcinolone acetonide 0.5 % topical cream 1 APPLIC TOPICAL DAILY NEEDED FOR DERMATITIS Active amLODIPine (NORVASC) 5 mg tablet Take 1 tablet (5 mg total) by mouth daily 08/12/2 024 Active atorvastatin (LIPITOR) 40 mg tablet Take [...] by mouth every morning 30 capsule 11 Active Eliquis 5 mg tabletIndicatio ns:atrial fibrillation Take 1 tablet (5 mg total) by mouth every 12 (twelve) hours 60 tablet 11 Active apixaban (ELIQUIS) 5 mg tabletIndicatio ns:atrial fibrillation Take 1 tablet (5 mg total) by mouth 2 (two) times a day 16 tablet 025 Active amlodipine-ator vastatin (CADUET) 5-40 mg per [...] Type Department Care Team Description 05/07/2024 Telephone [facility] Cardiology [address] [place] [address] [address] [place] [address] Mecry Hernandez NP 04/16/2024 2:00 PM CLOTH PRINTER HELPER Ancillary Procedure [facility] Cardiology at [address] [place] [address] Nonrheumatic aortic valve stenosis 04/16/2024 Telephone [facility] Cardiology [address] [place] [address] [address] [place] [address] Mercy Hernandez NP 04/15/2024 1:00 PM CLOTH PRINTER HELPER Office Visit [facility] Cardiology [address] [place] [address] [place] [address] Mercy Hernandez NP Persistent atrial fibrillation (HCC) (Primary Dx); Encounter for anticoagulation discussion and counseling; Class 2 severe obesity with body mass index (BMI) of 35 to 39.9 with serious comorbidity (HCC); Hospital discharge follow-up 04/15/2024 Orders Only [facility] Cardiology [address] [place] [address] [place] [address] Jodee Phelps MD 04/15/2024 Telephone [facility] Cardiology [address] [place] [address] [place] [address] Mercy Hernandez NP from Last 3 Months Surgical History Surgery [...] on file Legal Sex Male 4:22 PM CLOTH PRINTER HELPER Gender Identity Not on file Sexual Orientation Not on file Obstetrics History Last Filed Vital Signs Vital Sign Reading Time Taken Comments Blood Pressure 108/60 04/15/2024 1:06 PM CLOTH PRINTER HELPER Pulse 86 04/15/2024 1:06 PM CLOTH PRINTER HELPER Temperature 36.8 C (98.3 F) 12/22/2023 11:48 AM CDT Respiratory Rate 18 12/22/2023 11:48 AM CDT Oxygen Saturation 97% 04/15/2024 1:06 PM CLOTH PRINTER HELPER Inhaled Oxygen Concentration - - Weight 119.7 kg (264 lb) 04/15/2024 1:06 PM CLOTH PRINTER HELPER Height 182.9 cm (6') 04/15/2024 1:06 PM CLOTH PRINTER HELPER Body Mass Index 35.8 04/15/2024 1:06 PM CLOTH PRINTER HELPER Plan of Treatment Health Maintenance Due Date Last Done Comments Depression Screening 1945 Fall Risk Assessment 1945 Hepatitis C Screening 1945 DTaP/Tdap/Td Vaccine (1 - Tdap) 1956 Hepatitis B Screening 09/20/1963 Pneumococcal vaccine 65+ (1 of 1 - PCV) 09/20/1995 Zoster Vaccine (1 of 2) 09/20/1995 Well Visit 65+ 2010 Influenza Vaccine (#1) 2023 01/01/2019, 2015 Procedures Procedure Name Priority Date/Time Associated Diagnosis Comments TRANSTHORACIC ECHO (TTE) COMPLETE W DOPPLER/CF WO CONTRAST Routine 04/16/2024 2:34 PM CLOTH PRINTER HELPER Nonrheumatic aortic valve stenosis CARDIOLOGY DOCUMENT SCAN Routine 04/07/2024 4:01 PM CLOTH PRINTER HELPER CARDIOLOGY DOCUMENT SCAN Routine 04/06/2024 3:59 PM CLOTH PRINTER HELPER from Last 3 Months Results * TRANSTHORACIC ECHO (TTE) COMPLETE W DOPPLER/CF WO CONTRAST (04/16/2024 2:34 PM CLOTH PRINTER HELPER) LV EF 70-75 % CONS SCIMAGE Anatomical Region Laterality Modality Ultrasound 04/16/2024 2:00 PM CLOTH PRINTER HELPER Narrative 04/16/2024 5:14 PM CLOTH PRINTER HELPER [facility] Medical Group Cardiology [address], [address], [place] [address] P:[phone] P:[phone] Echocardiographic Report Patient Name: KOLTON SMITHHamilton : 1945 Study Date: 04/16/2024 2:00:36 PM [...] FINDINGS: Interpretation Site: Exam was interpreted at [facility]. Left Ventricle: Normal left ventricular systolic function. [...] By: Dariel Arevalo MD 04/16/2024 5:13:54 PM CLOTH PRINTER HELPER Procedure Note Dariel Arevalo MD - 04/16/2024 [facility] Medical Group Cardiology [address] [facility], [address], [place] [address] P:[phone] P:[phone] Echocardiographic Report Patient Name: KOLTON SMITH L [...] FINDINGS: Interpretation Site: Exam was interpreted at [facility]. Left Ventricle: Normal left ventricular systolic function. [...] By: Dariel Arevalo MD 04/16/2024 5:13:54 PM CLOTH PRINTER HELPER Reid Connor MD CV ECHO PROCEDURES Final Result * Cardiology Document Scan (04/07/2024 4:01 PM CLOTH PRINTER HELPER) Anatomical Region Laterality Modality Other Reid Connor MD CV CARDIAC SERVICES PROC EDURES Final Result * Cardiology Document Scan (04/06/2024 3:59 PM CLOTH PRINTER HELPER) Anatomical Region Laterality Modality Other Jodee Phelps MD CV CARDIAC SERVICES PRO CEDURES Final Result from Last 3 Months Insurance MEDICARE SOLUTIONS [place] [id number] MEDICARE SOLUTIONS [place] [address] MEDICARE SOLUTIONS [place] [id number] Care Teams Dental Appliance Mechanic Relationship Specialty Start Date End Date Arcenio Viveros DO PCP - General Internal Medicine 08/18/18
--- NOTE | 2024-05-12 07:00 | ECG_ITS ---
Test Date: 2024-05-12 07:26:18 Measurements Intervals [place] Rate: 102 P: 0 SC: 0 QRS: -25 QRSD: 84 T: 87 QT: 331 QTc: 432 Interpretive Statements ATRIAL FIBRILLATION WITH RAPID VENTRICULAR RESPONSE WITH ABERRANT CONDUCTION OR VENTRICULAR PREMATURE COMPLEXES LOW QRS VOLTAGE IN PRECORDIAL LEADS [QRS DEFLECTION < 1.0 mV IN CHEST LEADS] INFERIOR MYOCARDIAL INFARCTION , PROBABLY OLD [40+ ms Q WAVE AND/OR ST/T ABNORMALITY IN II/aVF] ABNORMAL ECG Compared to ECG 04/05/2024 22:14:29 No significant changes Electronically Signed On 05-12-2024 12:26:07 CDT by Dariel Arevalo M.D.
--- NOTE | 2024-05-12 08:00 | ECG_ITS ---
Test Date: 2024-05-12 08:36:05 Measurements Intervals [place] Rate: 84 P: 34 [place]: 191 QRS: -25 QRSD: 86 T: 77 QT: 399 QTc: 474 Interpretive Statements SINUS RHYTHM WITH FREQUENT SUPRAVENTRICULAR PREMATURE COMPLEXES BORDERLINE LEFT AXIS DEVIATION [QRS AXIS < -20] LOW QRS VOLTAGE IN PRECORDIAL LEADS [QRS DEFLECTION < 1.0 mV IN CHEST LEADS] POSSIBLE RIGHT VENTRICULAR CONDUCTION DELAY [RSR (QR) IN V1/V2] NONSPECIFIC T-WAVE ABNORMALITY ABNORMAL ECG Electronically Signed On 05-12-2024 12:28:34 CDT by Dariel Arevalo M.D.
--- NOTE | 2024-05-12 08:07 | WPDMODSED ---
Moderate Sedation Note-Pt Data Patient Data Diagnosis: Mild aortic valve stenosis Atrial fibrillation of recent onset rate controlled with diltiazem Obesity Present Complaint: No complaints this morning Procedure to be performed/Plan: DC cardioversion Allergies Allergy/AdvReac Type Severity Reaction Status Date / Time Penicillins Allergy Unknown Unknown Verified 05/12/24 07:30 Home Medications ?Medication ?Instructions ?Recorded ?Confirmed ?Type hydrochlorothiazide 25 mg tablet 25 mg PO DAILY #90 tabs 12/08/23 05/11/24 Rx lisinopril 10 mg tablet See Rx Instructions .Route 12/08/23 05/11/24 Rx .COMPLEX #90 tabs amlodipine 5 mg tablet See Rx Instructions .Route 03/23/24 05/11/24 Rx .COMPLEX #90 tabs atorvastatin 40 mg tablet See Rx Instructions .Route 03/23/24 05/11/24 Rx .COMPLEX #90 tabs cqyecainrp-lkeiljeang-aowqvzcg-hyalur 1 cap PO DAILY 04/06/24 05/11/24 History ac 375 mg-300 mg-175 mg-2 mg cap vitamins A,C,I-wyao-inbryr 4,296 1 cap PO DAILY 04/06/24 05/11/24 History mcg-226 mg-90 mg capsule (PreserVision AREDS) apixaban 5 mg tablet (Eliquis) 5 mg PO Q12HR #60 tabs 04/07/24 05/11/24 Rx diltiazem HCl 300 mg 300 mg PO QAM #30 caps 04/07/24 05/11/24 Rx capsule,extended release 24 hr allopurinol 300 mg tablet 300 mg PO DAILY #90 tabs 04/08/24 05/11/24 Rx Sedation/Anesthesia: No previous sedation/anesthesia problems (including family history). [facility] Past Medical History Medical History Gout Hearing loss Hyperlipidemia Hypertension Aortic valve stenosis Family History Family History Mother Family history of cardiovascular disease, Onset Age: 93 Father Family history of Alzheimer's disease, Onset Age: 91 Social History Social History Social History: Caffeine- coffee 2 cups daily Smoking status: Never smoker Smokeless tobacco user: chewing tobacco Alcohol intake: current Drinks per week: 10 Alcohol use details: Pt drinks weekly.- Beer Substance use: never Substance use type: does not use Do You Feel Safe in your Home?: Yes Lack of Transportation: No Lack of Food: Never True Current Housing: I Have Housing Concerned About Future Housing: No Difficulty Paying Gas/Electric Bills: No Difficulty Paying for Meds: No Currently Unemployed: No Education: Associate Degree Difficulty w/ Childcare or Family Care: No Living arrangements: with family Additional living arrangements comments: Edith, Spiritual care concerns: No Mod Sed Physical Exam Physical Exam Pre Procedural Exam: Normal: Neck, Throat, Airway, Lungs, Heart Size, Neuro Exam and Extremities and Variation: Appearance (Obese man appears his stated age no distress), Heart Rate and Heart Rhythm (Irregularly irregular) Hours since solid foods: 12 Hours since liquid intake: 12 Mallampati Classification: class II Internal Medicine - PN: Obj Da Vital Signs Vital Signs: Vital Signs - 24 hr 05/12/24 07:32 Temperature 36.4 C Pulse Rate 102 H Respiratory Rate 15 Blood Pressure 124/78 Pulse Oximetry 97 Oxygen Delivery Room Air Labs 05/12/24 07:33 ASA Classification/Sedation ASA Classification/Sedation ASA Class: III Emergent: No Risks: Risks, benefits and alternatives explained and patient/family accepted plan for sedation. Patient re-evaluated immediately prior to sedation.
[2024-05-12 08:26] LABS: Anion Gap 9 mmol/L (4-12); Blood Urea Nitrogen 18 mg/dL (9-20); Calcium 9.1 mg/dL (8.4-10.2); Carbon Dioxide 26 mmol/L (22-30); Chloride 104 mmol/L (98-107); Estimated CRCL calculation 83 ml/min; Estimated Glomerular Filt Rate > 60; Glucose 98 mg/dL (65-110); Magnesium 1.7 mg/dL (1.6-2.3); Potassium 3.5 mmol/L (3.4-5.0); Sodium 139 mmol/L (137-145)
--- NOTE | 2024-05-12 08:36 | WPDCARDPROC ---
Cardiac Cath Procedure Note Date of procedure:: 05/12/24 Performing physician:: Reid Connor MD Indication:: Atrial fibrillation of recent onset Brief clinical history:: This is a 78-year-old man with mild aortic valve stenosis recently presenting with shortness of breath and found to be in atrial fib. His rate was controlled with diltiazem and he has been anticoagulated with apixaban. He is admitted as an outpatient this morning and it poor attempt at restoring sinus rhythm electrically. Procedure Procedure performed:: DC cardioversion Sedation/Medication given:: IV propofol total dosage of 70 mg Estimated blood loss:: No blood loss Procedure note:: Patient was brought to the cardiac catheterization lab holding area in the postabsorptive state with defibrillator patches in the AP position and IV access established in the left arm. He was consented and time-out was performed. He was then sedated with aliquots of propofol a total of 70 mg was given as detailed above which provided excellent sedation. He was and counter shocked in a synchronized fashion with 200 joules x1 shock which restored sinus rhythm with APCs. Findings:: As above Conclusion:: Successful uncomplicated DC cardioversion terminating AFib restoring sinus rhythm with PACs using 200 joules x1 shock Reid Connor MD [facility]
[2024-05-12] MEDS: METOPROLOL SUCCINATE EXT REL 50 MG TABCR PO (08:50)
--- NOTE | 2024-05-12 09:45 | SUR.PHASEII ---
Metoprolol Succinate 50 mg PO prior to d/c home. Pt and family informed to start next dose tomorrow 05/13/24. Understanding verbalized
== END 2024-05-12 10:00 | disposition home or self-care (01) ==
PROVIDERS: PCP Internal Medicine; Visit Provider Specialist
PROC: 5A2204Z Restoration of Cardiac Rhythm, Single (ICD-10-PCS; principal; 2024-05-12 08:00)
DX: I48.91 Unspecified atrial fibrillation (principal); I35.0 Nonrheumatic aortic (valve) stenosis; F17.220 Nicotine dependence, chewing tobacco, uncomplicated
CPT/HCPCS: 36415; 80048; 83735; 92960; A9270; J2704; J7040

== ENCOUNTER 2024-06-01 00:12 | Day surgery (SDC) | payer MEDICARE, SELFPAY ==
[2024-05-31 15:14] VITALS: BMI 35.7
[2024-06-01] VITALS (8 sets, daily range): BP systolic 113–127; BP diastolic 74–100; PULSE 56–95; RESP 12–20; O2SAT 94–100; BMI 35.7
--- OUTSIDE RECORDS SUMMARY | 2024-06-01 00:14 | XMS_ITS | Encounter Summary ---
Author Organization [facility] Healthcare Address [address] [place] [address] Care Team Providers Care Repairer Name Role Phone Arcenio Viveros DO Primary Care Provider [phone]- [phone] Encounter Details Date Type Department Care Team (Late st Contact Info) Description 05/25/2024 Telephone [facility] Medical Group Cardiology [address] [place] [address] Reid Connor MD [address] [place] [address] Social History Tobacco Use Types Packs/Day Years Used Date Smoking Tobacco: Never Smokeless Tobacco: Current Alcohol Use Standard Drinks/Week Comments Yes 0 (1 standard drink = 0.6 oz pur e alcohol) 2 beer a day Sex and Gender Information Value Date Recorded Sex Assigned at Not on file Legal Sex Male 4:22 PM GROUTMAN Gender Identity Not on file Sexual Orientation Not on file documented as of this encounter Miscellaneous Notes * Telephone Encounter - Cassandra Murrieta RN - 05/25/2024 12:06 PM CDT Spoke with Cassandra, advised that pt is not still taking Diltiazem. She verbalizes understanding. * Telephone Encounter - Alma Lugo - 05/25/2024 11:59 AM CDT Cassandra from [facility] wanting to know if pt is still taking Diltiazem. Please advise, thank you. Contact: documented in this encounter Plan of Treatment Not on file documented as of this encounter Visit Diagnoses Not on filedocumented in this encounter Care Teams Repairer Relationship Specialty Start Date End Date Arcenio Viveros DO PCP - General Internal Medicine 08/18/18 documented as of this encounter
--- OUTSIDE RECORDS SUMMARY | 2024-06-01 00:14 | XMS_ITS | Referral Summary ---
Author Organization [facility] [address] [place] [address] [address] Address [address] [place] [address] Care Team Providers Care Paleontological Helper Name Role Phone Arcenio Viveros DO Primary Care Provider [phone]- [phone] Encounters Date Type Department Care Team Description 05/25/2024 Telephone [facility] Cardiology [address] [place] [address] [address] [place] [address] Reid Connor MD 05/25/2024 Telephone [facility] Cardiology [facility] [address] [place] [address] Mercy Hernandez NP Med Management 05/21/2024 9:00 AM CDT Office Visit [facility] Medical [facility] Cardiology [address] [place] [address] Mercy Hernandez NP Persistent atrial fibrillation (HCC) (Primary Dx); History of cardioversion; Class 2 severe obesity with body mass index (BMI) of 35 to 39.9 with serious comorbidity (HCC); At risk for sleep apnea; Nonrheumatic aortic valve stenosis 05/18/2024 Telephone [facility] Cardiology [address] [place] [address] [address] [place] [address] Reid Connor MD 05/17/2024 Orders Only [facility] Cardiology [address] [place] [address] Reid Connor MD 05/07/2024 Telephone [facility] Cardiology [address] [place] [address] [address] [place] [phone] Mercy Hernandez NP 04/16/2024 Telephone [facility] Cardiology [address] [place] [address] [place] [address] Mercy Hernandez NP 04/16/2024 2:00 PM [employer] Ancillary Procedure [facility] Cardiology at [address] [place] [address] Nonrheumatic aortic valve stenosis 04/15/2024 Orders Only [facility] Cardiology [address] [place] [phone] Jodee Phelps MD 04/15/2024 Telephone [facility] Cardiology [address] [place] [address] Mercy Hernandez NP 04/15/2024 1:00 PM [employer] Office Visit [facility] Cardiology [address] [place] [address] Mercy Hernandez NP Persistent atrial fibrillation [...] mouth daily Active vitamins A,C,E-zinc-roberto er 7,160-113-100 qdcr-zj-khbz tablet,delayed release (DR/EC) Take by mouth Active jici-eeyfvr-rus sdndx-T2-Z-Mn 500-400-667 mg-mg-unit capsule Take by mouth Active [...] Active Additional Information Patient not taking.Reported on 05/21/2024 apixaban (ELIQUIS) 5 mg tabletIndicatio ns:atrial fibrillation Take 1 tablet (5 mg total) by mouth 2 (two) times a day 16 tablet Active sotaloL (BETAPACE) 80 mg tabletIndicatio ns:Persistent atrial fibrillation (HCC) Take 1 tablet (80 mg total) by mouth 2 (two) times a day 60 tablet 2025 Active Eliquis 5 mg tabletIndicatio ns:Persistent atrial fibrillation (HCC) Take 1 tablet (5 mg total) by mouth every 12 (twelve) hours 60 tablet 2024 Discontinued dilTIAZem CD (CARDIZEM CD) 300 mg 24 hr capsuleIndicati ons:Persistent atrial fibrillation (HCC) Take 1 capsule (300 mg total) by mouth every morning 30 capsule 025 2024 Discontinued(A lternate therapy) Eliquis 5 mg tabletIndicatio ns:atrial fibrillation Take 1 tablet (5 mg total) by mouth every 12 (twelve) hours 60 tablet 11 032024 Discontinued(D uplicate order) metoprolol XL (TOPROL-XL) 50 mg extended release tablet Take 1 tablet (50 mg total) by mouth daily 2024 Discontinued(A lternate therapy) Active Problems Problem Noted Date Diagnosed Date [...] on file Legal Sex Male 4:22 PM [employer]MALL[employer]NER Gender Identity Not on file Sexual Orientation Not on file Last Filed Vital Signs Vital Sign Reading Time Taken Comments Blood Pressure 96/56 05/21/2024 8:36 AM CDT Pulse 92 05/21/2024 8:36 AM CDT Temperature 36.8 C (98.3 F) 12/22/2023 11:48 AM CDT Respiratory Rate 18 12/22/2023 11:4 8 AM CDT Oxygen Saturation 97% 05/21/2024 8:36 AM CDT Inhaled Oxygen Concentration - - Weight 119.8 kg (264 lb 3.2 oz) 05/21/2024 8:36 AM CDT Height 182.9 cm (6') 05/21/2024 8:36 AM CDT Body Mass Index 35.83 05/21/2024 8:36 AM CDT Plan of Treatment Not on file Procedures Procedure Name Priority Date/Time Associated Diagnosis Comments ELECTROCARDIOGRAM REPORT Routine 3:53 PM CDT Persistent atrial fibrillation (HCC) CARDIOLOGY DOCUMENT SCAN Routine 5:28 PM CDT TRANSTHORACIC ECHO (TTE) COMPLETE W DOPPLER/CF WO CONTRAST Routine 04/16/2024 2:34 PM [employer] Nonrheumatic aortic valve stenosis CARDIOLOGY DOCUMENT SCAN Routine 4:01 PM [employer]NER CARDIOLOGY DOCUMENT SCAN Routine 3:59 PM [employer]NER from Last 3 Months Results * Electrocardiogram Report (05/21/2024 3:53 PM CDT) us Mercy Hernandez NP ECG ORDERABLES Final Res ult * Cardiology Document Scan (05/12/2024 5:28 PM CDT) Anatomical Region Laterality Modality Other us Reid Connor MD CV CARDIAC SERVICES PROC EDURES Final Result * TRANSTHORACIC ECHO (TTE) COMPLETE W DOPPLER/CF WO CONTRAST (04/16/2024 2:34 PM [employer]OW [employer]NER) LV EF 70-75 % CONS SCIMAGE Anatomical Region Laterality Modality Ultrasound 04/16/2024 2:00 PM [employer]NER Narrative 04/16/2024 5:14 PM [employer] [facility] Medical Group Cardiology [address] , [address], [place] [address] P:[phone] P:[phone] Echocardiographic Report Patient Name: KOLTON SMITH L [...] FINDINGS: Interpretation Site: Exam was interpreted at [facility]. Left Ventricle: Normal left ventricular systolic function. [...] By: Dariel Arevalo MD 04/16/2024 5:13:54 PM [employer] Procedure Note Dariel Arevalo MD - 04/16/2024 [facility] Medical Group Cardiology [address], [address], [place] [address] P:[phone] P:[phone] Echocardiographic Report Patient Name: KOLTON SMITH L [...] FINDINGS: Interpretation Site: Exam was interpreted at [facility]. Left Ventricle: Normal left ventricular systolic function. [...] By: Dariel Arevalo MD 04/16/2024 5:13:54 PM [employer] us Reid Connor MD CV ECHO PROCEDURES Final Result * Cardiology Document Scan (04/07/2024 4:01 PM [employer]NER) Anatomical Region Laterality Modality Other us Reid Connor MD CV CARDIAC SERVICES PROC EDURES Final Result * Cardiology Document Scan (04/06/2024 3:59 PM [employer]NER) Anatomical Region Laterality Modality Other us Jodee Phelps MD CV CARDIAC SERVICES PRO CEDURES Final Result from Last 3 Months Insurance [facility] [place] [id number] [facility] MEDICARE ADVANTAGE [facility] MEDICARE ADVANTAGE Care Teams Paleontological Helper Relationship Specialty Start Date End Date Arcenio Viveros DO PCP - General Internal Medicine 08/18/18
--- OUTSIDE RECORDS SUMMARY | 2024-06-01 00:14 | XMS_ITS | Encounter Summary ---
Author Organization [facility] Medical Group Address [address] [place] [address] Care Team Providers Care Repossessor Name Role Phone Arcenio Viveros DO Primary Care Provider + [phone] Arcenio Viveros DO Primary Care Provider +- [phone] Encounter Details Date Type Department Care Team (Late st Contact Info) Description 07/10/2016 Orders Only [facility] ProviderDarrin MD [address] [place] [address] Social History Tobacco Use Types Packs/Day Years Used Date Smoking Tobacco: Never Assessed Sex and Gender Information Value Date Recorded Sex Assigned at Not on file Legal Sex Male 4:22 PM MANAGER ED Gender Identity Not on file Sexual Orientation [...] on filedocumented in this encounter Care Teams Repossessor Relationship Specialty Start Date End Date Arcenio Viveros DO PCP - General 06/12/15 08/17/18 Arcenio Viveros, PCP - General Internal Medicine 08/18/18 documented as of this encounter
--- OUTSIDE RECORDS SUMMARY | 2024-06-01 00:14 | XMS_ITS | Clinical Summary ---
Author Organization [facility] Address [address] [place] [address] Care Team Providers Care Director Financial Services Name Role Phone Unavailable Primary Care Provider Unavailabl e Source Comments [facility],non-owned Affiliates and Associated Physician Practices is amultiple site organization consisting of ambulatory clinics and hospital sitesin [place], [place], [place] and [place]. This disclosure is being madepursuant to the Care Everywhere program and may not contain all information available regarding this patient. Last updated 17.[facility] [employer] Social History Tobacco Use Types Packs/Day Years [...] VACCINE ( - 2023-2 5 season) 2023 DEPRESSION SCREENING 02/25/2024 MEDICARE AWV CALENDAR YEAR 2024 INFLUENZA VACCINE (Season Ended) 2024 HEPATITIS B VACCINE Aged Out No [...]
--- OUTSIDE RECORDS SUMMARY | 2024-06-01 00:14 | XMS_ITS | Encounter Summary ---
Author Organization [facility] Health Address [address] [address] Care Team Providers Care [employer] Name Role Phone Unavailable Primary Care Provider Unavailabl e Encounter Details Date Type Department Care Team (Late st Contact Info) Description 04/12/2022 Lab Requisition [facility] DermPath Lab [address] [facility] [place] [phone] Sajan Katz MD [address] [place] [address] Social History Tobacco Use Types Packs/Day [...] Diagnosis Comments DERMATOPATHOLOGY Routine 04/10/2022 3:33 AM CORE WINDER MACHINE OPERATOR documented in this encounter Results * DERMATOPATHOLOGY (04/10/2022 3:33 AM CORE WINDER MACHINE OPERATOR) Case Report Dermatopathology Report Case: [id number] Authorizing Provider: Sajan Katz MD Collected: 04/10/2022 03:33 AM Ordering Location: [facility] DermPath Lab Received: 04/12/2022 07:43 AM Pathologist: Ilda Huitron MD Specimen: Skin, left congregation 11:07 AM CORE WINDER MACHINE OPERATOR DERMATOPATHOLOGY LABORATORY Final Diagnosis Specimen A. 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 The specimen consists of a shave biopsy measuring 8x7x1 mm. Jar 0. 3 11:07 AM [facility] DERMATOPATHOLOGY LABORATORY Microscopic Description Specimen A. SKIN, left congregation: The epidermis shows parakeratosis, full thickness disorderly maturation of keratinocytes, mitoses at different levels, and dyskeratotic cells. There is prominent pigmentation in some of the keratinocytes. 3 11:07 AM [facility] DERMATOPATHOLOGY LABORATORY Disclaimer An external and internal positive and negative controls are appropriate for the histochemical, immunohistochemical and immunofluorescence stain(s) in this case (if any), except where stated explicitly. The performance characteristics of the stain(s) cited in this report were developed and its performance characteristic determined by the Dermatopathology Laboratory at [facility], directed by Dr. Jany Kumari. These tests need not be, and therefore are not, approved by the [place] Food and Drug Administration. The tests are used for clinical purposes. Billing Codes Specimen Charges Stain Charges 51430 1 3 11:07 AM [facility] DERMATOPATHOLOGY LABORATORY Embedded Images 3 11:07 AM [facility] DERMATOPATHOLOGY LABORATORY Pathology/Cytolo gy TISSUE SPECIMEN FROM SKIN / Unknown 04/10/2022 3:33 AM CORE WINDER MACHINE OPERATOR 04/12/2022 7:43 AM [facility] Sajan Katz MD LAB - PATHOLOGY/CYTO LOGY ORDERABLES DERMATOPATHOLOGY LABORATORY [facility] - Department of Dermatology [address] [phone] documented in this encounter Visit Diagnoses Not on filedocumented in this encounter
--- OUTSIDE RECORDS SUMMARY | 2024-06-01 00:14 | XMS_ITS | Clinical Summary ---
Author Organization [facility] [place] [address] Address [address] [place] [address] Care Team Providers Care Abstract Clerk Name Role Phone Arcenio Viveros DO Primary Care Provider +1- [phone] Allergies Active Allergy Reactions Criticality Noted Date [...] mouth daily Active vitamins A,C,E-zinc-roberto er 7,160-113-100 bcwh-sw-ctty tablet,delayed release (DR/EC) Take by mouth Active kabh-mcexvf-jat jbxag-J1-K-Mn 500-400-667 mg-mg-unit capsule Take by mouth Active [...] 2 (two) times a day 60 tablet 025 2025 Active Eliquis 5 mg tabletIndicatio ns:Persistent atrial fibrillation (HCC) Take 1 tablet (5 mg total) by mouth every 12 (twelve) hours 60 tablet 025 2024 Discontinued dilTIAZem CD (CARDIZEM CD) 300 mg 24 hr capsuleIndicati ons:Persistent atrial fibrillation (HCC) Take 1 capsule (300 mg total) by mouth every morning 30 capsule 11 025 2024 Discontinued(A lternate therapy) Eliquis 5 mg tabletIndicatio ns:atrial fibrillation Take 1 tablet (5 mg total) by mouth every 12 (twelve) hours 60 tablet 025 2024 Discontinued(D uplicate order) metoprolol XL (TOPROL-XL) 50 mg extended release tablet Take 1 tablet (50 mg total) by mouth daily 025 2024 Discontinued(A lternate therapy) Active Problems Problem Noted Date Diagnosed Date Osteoarthritis 11/21/2021 Arthralgia of right knee 09/26/2021 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/2019 Encounters Date Type Department Care Team Description 05/25/2024 Telephone [facility] Cardiology [address] [place] [address] [place] [phone] Reid Connor MD 05/25/2024 Telephone [facility] Cardiology [address] [place] [address] [place] [phone] Mercy Hernandez NP Med Management 05/21/2024 9:00 AM CDT Office Visit [place] [address] [place] [phone] Mercy Hernandez NP Persistent atrial fibrillation (HCC) (Primary Dx); History of cardioversion; Class 2 severe obesity with body mass index (BMI) of 35 to 39.9 with serious comorbidity (HCC); At risk for sleep apnea; Nonrheumatic aortic valve stenosis 05/18/2024 Telephone [facility] Cardiology [address] [place] [address] [place] [phone] Reid Connor MD 05/17/2024 Orders Only [facility] Cardiology [address] [place] [address] [place] [phone] Reid Connor MD 05/07/2024 Telephone [facility] Cardiology [address] [place] [address] [place] [phone] Mercy Hernandez NP 04/16/2024 2:00 PM ENGLISH AS A SECOND LANGUAGE INSTRUCTOR Ancillary Procedure [facility] Cardiology at [address] [place] [address] Nonrheumatic aortic valve stenosis 04/16/2024 Telephone [facility] Cardiology [address] [place] [address] [place] [phone] Mercy Hernandez NP 04/15/2024 1:00 PM ENGLISH AS A SECOND LANGUAGE INSTRUCTOR Office Visit [facility] Cardiology [address] [place] [address] [place] [phone] Mercy Hernandez NP Persistent atrial fibrillation (HCC) (Primary Dx); Encounter for anticoagulation discussion and counseling; Class 2 severe obesity with body mass index (BMI) of 35 to 39.9 with serious comorbidity (HCC); Hospital discharge follow-up 04/15/2024 Orders Only [facility] Cardiology [address] [place] [phone] Jodee Phelps MD 04/15/2024 Telephone [facility] Cardiology [address] [place] [phone] Mercy Hernandez NP from Last 3 [...] on file Legal Sex Male 4:22 PM ENGLISH AS A SECOND LANGUAGE INSTRUCTOR Gender Identity Not on file Sexual Orientation [...] 05/21/2024 8:36 AM CDT Plan of Treatment Health Maintenance Due Date Last Done Comments Depression Screening 1945 Fall Risk Assessment 1945 Hepatitis C Screening 1945 DTaP/Tdap/Td Vaccine (1 - Tdap) 1956 Hepatitis B Screening 09/20/1963 Pneumococcal vaccine 65+ (1 of 1 - PCV) 09/20/1995 Zoster Vaccine (1 of 2) 09/20/1995 Well Visit 65+ 2010 Influenza Vaccine (Season Ended) 2024 01/02/20, 01/30/2016 Procedures Procedure Name Priority Date/Time Associated Diagnosis Comments ELECTROCARDIOGRAM REPORT Routine 3:53 PM CDT Persistent atrial fibrillation (HCC) CARDIOLOGY DOCUMENT SCAN Routine 025 5:28 PM CDT TRANSTHORACIC ECHO (TTE) COMPLETE W DOPPLER/CF WO CONTRAST Routine 04/16/2024 2:34 PM ENGLISH AS A SECOND LANGUAGE INSTRUCTOR Nonrheumatic aortic valve stenosis CARDIOLOGY DOCUMENT SCAN Routine 025 4:01 PM ENGLISH AS A SECOND LANGUAGE INSTRUCTOR CARDIOLOGY DOCUMENT SCAN Routine 025 3:59 PM ENGLISH AS A SECOND LANGUAGE INSTRUCTOR from Last 3 Months Results * Electrocardiogram Report (05/21/2024 3:53 PM CDT) us Mercy Hernandez NP ECG ORDERABLES Final Res ult * Cardiology Document Scan (05/12/2024 5:28 PM CDT) Anatomical Region Laterality Modality Other us Reid Connor MD CV CARDIAC SERVICES PROC EDURES Final Result * TRANSTHORACIC ECHO (TTE) COMPLETE W DOPPLER/CF WO CONTRAST (04/16/2024 2:34 PM ENGLISH AS A SECOND LANGUAGE INSTRUCTOR) LV EF 70-75 % CONS SCIMAGE Anatomical Region Laterality Modality Ultrasound 04/16/2024 2:00 PM ENGLISH AS A SECOND LANGUAGE INSTRUCTOR Narrative 04/16/2024 5:14 PM ENGLISH AS A SECOND LANGUAGE INSTRUCTOR [facility] Cardiology [address], [address], [place] [address] P:[phone] P:[phone] Echocardiographic Report Patient Name: KOLTON SMITH L [...] FINDINGS: Interpretation Site: Exam was interpreted at [facility]. Left Ventricle: Normal left ventricular systolic function. [...] By: Dariel Arevalo MD 04/16/2024 5:13:54 PM ENGLISH AS A SECOND LANGUAGE INSTRUCTOR Procedure Note Dariel Arevalo MD - 04/16/2024 [facility] Cardiology [address] [facility], [address], [place] [address] P:[phone] P:[phone] Echocardiographic Report Patient Name: KOLTON SMITH L [...] [ 0.60 - 1.00 ] PV Peak Antoino 1.28m/s [ 0.40 - 0.80 ] LA [...] FINDINGS: Interpretation Site: Exam was interpreted at [facility]. Left Ventricle: Normal left ventricular systolic function. [...] By: Dariel Arevalo MD 04/16/2024 5:13:54 PM ENGLISH AS A SECOND LANGUAGE INSTRUCTOR Reid Connor MD CV ECHO PROCEDURES Final Result * Cardiology Document Scan (04/07/2024 4:01 PM ENGLISH AS A SECOND LANGUAGE INSTRUCTOR) Anatomical Region Laterality Modality Other Reid Connor MD CV CARDIAC SERVICES PROC EDURES Final Result * Cardiology Document Scan (04/06/2024 3:59 PM ENGLISH AS A SECOND LANGUAGE INSTRUCTOR) Anatomical Region Laterality Modality Other Jodee Phelps MD CV CARDIAC SERVICES PRO CEDURES Final Result from Last 3 Months Insurance [facility] MEDICARE ADVANTAGE MEDICARE ADVANTAGE MEDICARE ADVANTAGE Care Teams Abstract Clerk Relationship Specialty Start Date End Date Arcenio Viveros DO PCP - General Internal Medicine 08/18/18
--- NOTE | 2024-06-01 13:00 | ECG_ITS ---
Test Date: 2024-06-01 15:04:06 Measurements Intervals [place] Rate: 55 P: 60 OR: 194 QRS: -28 QRSD: 80 T: -7 QT: 433 QTc: 417 Interpretive Statements SINUS BRADYCARDIA WITH OCCASIONAL SUPRAVENTRICULAR PREMATURE COMPLEXES DELAYED PRECORDIAL R/S TRANSITION LOW QRS VOLTAGE IN PRECORDIAL LEADS INFERIOR INFARCT, AGE INDETERMINATE ABNORMAL ECG Compared to ECG 06/01/2024 13:48:40 Atrial fibrillation no longer present Electronically Signed On 06-01-2024 15:10:54 CDT by Santino Amaya D.O.
--- NOTE | 2024-06-01 13:30 | ECG_ITS ---
Test Date: 2024-06-01 13:48:40 Measurements Intervals [place] Rate: 96 P: 0 [place]: 0 QRS: -30 QRSD: 79 T: 60 QT: 372 QTc: 471 Interpretive Statements ATRIAL FIBRILLATION LOW QRS VOLTAGE IN PRECORDIAL LEADS INFERIOR INFARCT, AGE INDETERMINATE BORDERLINE ST-T WAVE ABNORMALITY- HIGH LATERAL LEADS BASELINE ARTIFACT- II, III, AVF, V1, V4-V6 ABNORMAL ECG Compared to ECG 05/12/2024 08:36:05 Sinus rhythm no longer present Electronically Signed On 06-01-2024 13:50:42 CDT by Santino Amaya D.O.
[2024-06-01 14:50] LABS: Anion Gap 8 mmol/L (4-12); Blood Urea Nitrogen 16 mg/dL (9-20); Calcium 8.9 mg/dL (8.4-10.2); Carbon Dioxide 25 mmol/L (22-30); Chloride 105 mmol/L (98-107); Estimated CRCL calculation 94 ml/min; Estimated Glomerular Filt Rate > 60; Glucose 92 mg/dL (65-110); Magnesium 1.6 mg/dL (1.6-2.3); Potassium 3.8 mmol/L (3.4-5.0); Sodium 138 mmol/L (137-145)
--- NOTE | 2024-06-01 14:56 | P.SEDATION_ITS ---
Moderate Sedation Note-Pt Data Patient Data Diagnosis: Recurrent atrial fibrillation Present Complaint: Generalized fatigue Procedure to be performed/Plan: DC cardioversion Allergies Allergy/AdvReac Type Severity Reaction Status Date / Time Penicillins Allergy Unknown Unknown Verified 06/01/24 13:42 Home Medications ?Medication ?Instructions ?Recorded ?Confirmed ?Type hydrochlorothiazide 25 mg tablet 25 mg PO DAILY #90 tabs 12/08/23 05/31/24 Rx lisinopril 10 mg tablet See Rx Instructions .Route 12/08/23 06/01/24 Rx .COMPLEX #90 tabs amlodipine 5 mg tablet See Rx Instructions .Route 03/23/24 06/01/24 Rx .COMPLEX #90 tabs atorvastatin 40 mg tablet See Rx Instructions .Route 03/23/24 06/01/24 Rx .COMPLEX #90 tabs apkqxyefsp-vuxunipnqg-ncuomlmp-hyalur 1 cap PO DAILY 04/06/24 06/01/24 History ac 375 mg-300 mg-175 mg-2 mg cap vitamins A,C,K-cdlx-opownf 4,296 1 cap PO DAILY 04/06/24 06/01/24 History mcg-226 mg-90 mg capsule (PreserVision AREDS) apixaban 5 mg tablet (Eliquis) 5 mg PO Q12HR #60 tabs 04/07/24 06/01/24 Rx allopurinol 300 mg tablet 300 mg PO DAILY #90 tabs 04/08/24 06/01/24 Rx metoprolol succinate 50 mg 50 mg PO QAM 90 days #0 tabs 05/12/24 05/31/24 Rx tablet,extended release 24 hr sotalol 80 mg tablet 80 mg PO Q12H 05/31/24 06/01/24 History Sedation/Anesthesia: No previous sedation/anesthesia problems (including family history). [facility] Past Medical History Medical History (Updated 05/18/24 @ 11:05 by Nadiya Bhat CMA) Gout Hearing loss Hyperlipidemia Hypertension Aortic valve stenosis Family History Family History Mother Family history of cardiovascular disease, Onset Age: 93 Father Family history of Alzheimer's disease, Onset Age: 91 Social History Social History (Updated 05/18/24 @ 11:06 by Nadiya Bhat CMA) Social History: Caffeine- coffee 2 cups daily Smoking status: Never smoker Smokeless tobacco user: chewing tobacco Alcohol intake: former Drinks per week: 10 Alcohol use details: Pt drinks weekly.- Beer Substance use: never Substance use type: does not use Do You Feel Safe in your Home?: Yes Lack of Transportation: No Lack of Food: Never True Current Housing: I Have Housing Concerned About Future Housing: No Difficulty Paying Gas/Electric Bills: No Difficulty Paying for Meds: No Currently Unemployed: No Education: Associate Degree Difficulty w/ Childcare or Family Care: No Living arrangements: with family Additional living arrangements comments: Edith, Spiritual care concerns: No Mod Sed Physical Exam Physical Exam Pre Procedural Exam: Normal: Neck, Throat, Airway, Lungs, Heart Size, Neuro Exam and Extremities and Variation: Appearance (Obese white male no apparent distress), Heart Rate (Irregularly irregular) and Heart Rhythm Hours since solid foods: 12 Hours since liquid intake: 12 Mallampati Classification: class II Internal Medicine - PN: Obj Da Vital Signs Vital Signs: Vital Signs - 24 hr 06/01/24 13:59 Pulse Rate 78 Respiratory Rate 12 Blood Pressure 124/87 Pulse Oximetry 98 Oxygen Delivery Room Air Labs 06/01/24 14:33 Labs: Laboratory Results - last 24 hr 06/01/24 14:33 Sodium 138 Potassium 3.8 Chloride 105 Carbon Dioxide 25 Anion Gap 8 BUN 16 Creatinine 0.75 Estim Creat Clear Calc 94 Estimated GFR > 60 Glucose 92 Calcium 8.9 Magnesium 1.6 ASA Classification/Sedation ASA Classification/Sedation ASA Class: III Emergent: No Risks: Risks, benefits and alternatives explained and patient/family accepted plan for sedation. Patient re-evaluated immediately prior to sedation.
--- NOTE | 2024-06-01 15:06 | P.PCNCC_ITS ---
Cardiac Cath Procedure Note Date of procedure:: 06/01/24 Performing physician:: Reid Connor MD Indication:: Recurrent symptomatic atrial fibrillation Brief clinical history:: This is a patient with mild aortic valve stenosis and recent atrial fibrillation which has been problematic with symptoms of fatigue and dyspnea. Despite recent cardioversion he had a short, early recurrence and AFib. He has been placed on sotalol and an attempt is being maintained restore sinus rhythm again Procedure Procedure performed:: DC cardioversion Sedation/Medication given:: Intravenous propofol total dosage of 70 bili Estimated blood loss:: None Procedure note:: Patient was brought to the cardiac catheterization lab in the postabsorptive state IV access was established in the right arm. Defibrillator patches were placed in the AP position the defibrillator was turned on synchronized 200 joules output. He was sedated than with propofol a total dosage of 70 mg was given which provided excellent sedation. He was in counter shocked with 200 joules restoring sinus rhythm. Findings:: As above Conclusion:: Successful uncomplicated DC cardioversion using 200 joules x1 shock restoring normal sinus rhythm. Reid Connor MD [facility]
== END 2024-06-01 16:18 | disposition home or self-care (01) ==
PROVIDERS: PCP Internal Medicine; Visit Provider Specialist
PROC: 5A2204Z Restoration of Cardiac Rhythm, Single (ICD-10-PCS; principal; 2024-06-01 14:30)
DX: I48.91 Unspecified atrial fibrillation (principal); I35.0 Nonrheumatic aortic (valve) stenosis; E66.01 Morbid (severe) obesity due to excess calories; Z68.35 Body mass index [BMI] 35.0-35.9, adult
CPT/HCPCS: 36415; 80048; 83735; 92960; J2704; J7040

== ENCOUNTER 2024-11-23 11:49 | Outpatient (CLI) | payer MEDICARE, SELFPAY ==
--- NOTE | ~2024-11-23 | XR_ITS ---
EXAMINATION: XR chest 2V, 11/23/2024 11:57 CDT HISTORY: shortness of breath x 6 months, no surgery, no inj, new meds COMPARISON: No comparisons available. Technique: 2 views obtained. Findings: The lungs are clear, no effusion. No pneumothorax. Heart is normal size. Mediastinal and hilar contours are within normal limits. Bony thorax no acute abnormality. Impression: No acute cardiopulmonary abnormality. Reviewed, dictated and finalized at location P. Impression: No acute cardiopulmonary abnormality.
== END 2024-11-23 11:50 | disposition home or self-care (01) ==
LOC: GOSHIMG 11:50
PROVIDERS: PCP Clinical Nurse Specialist; Visit Provider Clinical Nurse Specialist
DX: R06.02 Shortness of breath (principal)
CPT/HCPCS: 71046

== ENCOUNTER 2024-11-23 13:27 | Outpatient (CLI) | payer MEDICARE, SELFPAY ==
--- OUTSIDE RECORDS SUMMARY | 2024-11-23 13:40 | XMS_ITS | Encounter Summary ---
Author Organization [facility] Address [address] [place] [address] Care Team Providers Care Parachute Rigger Name Role Phone Arcenio Viveros DO Primary Care Provider + [phone] Arcenio Viveros DO Primary Care Provider +- [phone] Encounter Details Date Type Department Care Team (Late st Contact Info) Description 07/10/2016 Orders Only [facility] ProviderDarrin MD [address] [place] [address] Social History Tobacco Use Types Packs/Day Years Used Date Smoking Tobacco: Never Assessed Sex and Gender Information Value Date Recorded Sex Assigned at Not on file Legal Sex Male 4:[address] Gender Identity Not on file Sexual Orientation [...] on filedocumented in this encounter Care Teams Parachute Rigger Relationship Specialty Start Date End Date Arcenio Viveros DO PCP - General 06/12/15 08/17/18 Arcenio Viveros DO PCP - General Internal Medicine 08/18/18 documented as of this encounter
--- OUTSIDE RECORDS SUMMARY | 2024-11-23 13:40 | XMS_ITS | Clinical Summary ---
Author Organization [facility] [address] Address [address] [place] [address] Care Team Providers Care Transfer Station Attendant Name Role Phone Arcenio Viveros DO Primary Care Provider +1- [phone] Allergies Active Allergy Reactions Criticality Noted Date Comments Penicillin G Rash Medium 09/09/2018 Penicillins Rash Medium 10/12/2019 Medications hydroCHLOROthiaz sammy (HYDRODIURIL) 25 mg tablet Take 1 tablet (25 mg total) by mouth daily Active celecoxib (CeleBREX) 200 mg capsule Take 1 capsule (200 mg total) by mouth daily Active allopurinol (ZYLOPRIM) 300 mg tablet Take 100 mg by mouth daily Active lisinopril (PRINIVIL,ZESTRI L) 10 mg tablet Take 1 tablet (10 mg total) by mouth daily Active vitamins A,C,I-aaug-epbfs r 7,160-113-100 ztof-os-btgw tablet,delayed release (DR/EC) Take by mouth Active niyx-ereldr-fxam uqgo-F7-P-Mn 500400-667 mg-mg-unit capsule Take by mouth Active bacitracin 500 unit/gram ointment Apply topically daily 02/08/20 22 Active clindamycin (CLEOCIN) 300 mg capsule TAKE 1 CAPSULE BY MOUTH EVERY 8 HOURS 02/08/20 22 Active triamcinolone (KENALOG) 0.5 % cream triamcinolone acetonide 0.5 % topical cream 1 APPLIC TOPICAL DAILY NEEDED FOR DERMATITIS Active amLODIPine (NORVASC) 5 mg tablet Take 1 tablet (5 mg total) by mouth daily 10/06/19 24 Active atorvastatin (LIPITOR) 40 mg tablet Take 1 tablet (40 mg total) by mouth daily 10/06/19 24 Active benzonatate (TESSALON) 200 mg capsuleIndicatio ns:Acute pansinusitis, recurrence not specified Take 1 capsule (200 mg total) by mouth 3 (three) times a day as needed for cough keep tessalon out of reach of children, especially children under the age of 10, due to possible serious risk such as if ingested by children under the age of 10. 30 capsule 12/22/19 24 Active Additional Information Patient not taking.Reported on 07/22/2024 sotaloL (BETAPACE) 80 mg tabletIndication s:Persistent atrial fibrillation (HCC) Take 1 tablet (80 mg total) by mouth 2 (two) times a day 60 tablet 11 05/26/19 25 026 Active apixaban (ELIQUIS) 5 mg tabletIndication s:atrial fibrillation Take 1 tablet (5 mg total) by mouth 2 (two) times a day 60 tablet 5 08/17/19 25 Active Active Problems Problem Noted Date Diagnosed Date Osteoarthritis 11/21/2021 Arthralgia of right knee 09/26/2021 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/2019 Surgical History Surgery Date Site/Laterality Comments BACK [...] on file Legal 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 Gender Identity Not on file Sexual Orientation Not on file Obstetrics History Last Filed Vital Signs Vital Sign Reading Time Taken Comments Blood Pressure 128/82 07/22/2024 11:43 AM CDT Pulse 56 07/22/2024 11:43 AM CDT Temperature 36.8 C (98.3 F) 12/22/2023 11:48 AM CDT Respiratory Rate 18 12/22/2023 11:48 AM CDT Oxygen Saturation 98% 07/22/2024 11:43 AM CDT Inhaled Oxygen Concentration - - Weight 120.2 kg (265 lb) 07/22/2024 11:43 AM CDT Height 182.9 cm (6') 07/22/2024 11:43 AM CDT Body Mass Index 35.94 07/22/2024 11:43 AM CDT Plan of Treatment Health Maintenance Due Date Last Done Comments Depression Screening 1945 Fall Risk Assessment 1945 Hepatitis C Screening 1945 DTaP/Tdap/Td Vaccine (1 - Tdap) 1956 Hepatitis B Screening 09/20/1963 Pneumococcal vaccine 65+ (1 of 1 - PCV) 09/20/1995 Zoster Vaccine (1 of 2) 09/20/1995 Well Visit 65+ 2010 Influenza Vaccine (#1) 2024 01/01/2019, 2015 Insurance [facility] MEDICARE ADVANTAGE [facility] MEDICARE ADVANTAGE [employer] MEDICARE ADVANTAGE Care Teams Transfer Station Attendant Relationship Specialty Start Date End Date Arcenio Viveros DO PCP - General Internal Medicine 08/18/18
--- OUTSIDE RECORDS SUMMARY | 2024-11-23 13:40 | XMS_ITS | Encounter Summary ---
Author Organization [facility] Health Address [address] [place] [address] Care Team Providers Care Logging Equipment Operator Name Role Phone Felice Arcenio Pema ARTEAGA Primary Care Provider Encounter Details Date Type Department Care Team (Late Contact Info) Description 04/12/2022 Lab Requisition [facility] [address] [place] [phone] Sajan Katz MD [address] [place] [address] Social History Tobacco Use Types Packs/Day Years Used Date Smoking Tobacco: Never Assessed Sex and Gender Information Value Date Recorded Sex Assigned at Not on file Legal Sex Male 6:33 PM PRIVATE BRANCH EXCHANGE OPERATOR Gender Identity Not on file Sexual Orientation Not on file documented as of this encounter Plan of Treatment Upcoming Encounters Date Type Department Care Team (Late Contact Info) Description 02/28/2025 1:45 PM PRIVATE BRANCH EXCHANGE OPERATOR Office Visit [facility] - Ophthalmology [address] [place] [phone] Yarelis Cordova MD [address] [place] [address] [place] [phone] documented as of this encounter Procedures Procedure Name Priority Date/Time Associated Diagnosis Comments DERMATOPATHOLOGY Routine 04/10/2022 3:33 AM PRIVATE BRANCH EXCHANGE OPERATOR documented in this encounter Results * DERMATOPATHOLOGY (04/10/2022 3:33 AM [facility]) Case Report Dermatopathology Report Case: [id number] Authorizing Provider: Sajan Katz MD Collected: 04/10/2022 03:33 AM Ordering Location: [facility] Received: 04/12/2022 07:43 AM Pathologist: Ilda Huitron MD Specimen: Skin, left baptism 11:07 AM [facility] DERMATOPATHOLOGY LABORATORY Final Diagnosis Specimen A. 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 The specimen consists of a shave biopsy measuring 8x7x1 mm. Jar 0. 11:07 AM [facility] DERMATOPATHOLOGY LABORATORY Microscopic Description Specimen A. SKIN, left baptism: The epidermis shows parakeratosis, full thickness disorderly maturation of keratinocytes, mitoses at different levels, and dyskeratotic cells. There is prominent pigmentation in some of the keratinocytes. 11:07 AM [facility] DERMATOPATHOLOGY LABORATORY Disclaimer An external and internal positive and negative controls are appropriate for the histochemical, immunohistochemical and immunofluorescence stain(s) in this case (if any), except where stated explicitly. The performance characteristics of the stain(s) cited in this report were developed and its performance characteristic determined by the Dermatopathology Laboratory at [facility], directed by Dr. Jany Kumari. These tests need not be, and therefore are not, approved by the [place] Food and Drug Administration. The tests are used for clinical purposes. Billing Codes Specimen Charges Stain Charges 40187 1 11:07 AM [facility] DERMATOPATHOLOGY LABORATORY Embedded Images 11:07 AM [facility] DERMATOPATHOLOGY LABORATORY Pathology/Cytolo gy TISSUE SPECIMEN FROM SKIN / Unknown 04/10/2022 3:33 AM PRIVATE BRANCH EXCHANGE OPERATOR 04/12/2022 7:43 AM PRIVATE BRANCH EXCHANGE OPERATOR us Sajan Katz MD LAB - PATHOLOGY/CYTOLOGY ORDER ARLETTE Final Result DERMATOPATHOLOGY LABORATORY [facility] - Department of Dermatology [facility] Medicine [address] [place] [address], [address] [phone] documented in this encounter Visit Diagnoses Not on filedocumented in this encounter Care Teams Logging Equipment Operator Relationship Specialty Start Date End Date Arcenio Viveros DO [address] [place] [phone] PCP - General Internal Medicine 07/23/24 documented as of this encounter
--- OUTSIDE RECORDS SUMMARY | 2024-11-23 13:40 | XMS_ITS | Encounter Summary ---
Author Organization [facility] Healthcare Address [address] [place] [address] Care Team Providers Care Hose Builder Name Role Phone Arcenio Viveros DO Primary Care Provider +1- [phone] Encounter Details Date Type Department Care Team (Late st Contact Info) Description 04/07/2024 Orders Only [facility] Health Information Management [address] [place] [address] Scanning, Provider Social History Tobacco Use Types Packs/Day Years Used Date Smoking Tobacco: Never Smokeless Tobacco: Current Alcohol Use Standard Drinks/Week Comments Yes 0 (1 standard drink = 0.6 oz pur e alcohol) 2 beer a day Sex and Gender Information Value Date Recorded Sex Assigned at Not on file 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 Gender Identity Not on file Sexual Orientation Not on file documented as of this encounter Plan of Treatment Not on file documented as of this encounter Procedures Procedure Name Priority Date/Time Associated Diagnosis Comments PULMONARY - RESULT SCAN 04/07/2024 CARDIOLOGY DOCUMENT SCAN 04/06/2024 documented in this encounter Results * PULMONARY - RESULT SCAN (04/07/2024) Anatomical Region Laterality Modality Other us Provider Scanning Edited Result - Final * Cardiology Document Scan (04/06/2024) Anatomical Region Laterality Modality Other us Provider Scanning CV CARDIAC SERVICES PROCEDURES Final Result documented in this encounter Visit Diagnoses Not on filedocumented in this encounter Care Teams Hose Builder Relationship Specialty Start Date End Date Arcenio Viveros DO PCP - General Internal Medicine 08/18/18 documented as of this encounter
--- OUTSIDE RECORDS SUMMARY | 2024-11-23 13:40 | XMS_ITS | Encounter Summary ---
Author Organization [facility] Healthcare Address [address] [place] [address] Care Team Providers Care Salmon Gillnet Vessel Operator Name Role Phone Arcenio Viveros DO Primary Care Provider [phone]- [phone] Encounter Details Date Type Department Care Team (Late st Contact Info) Description 05/12/2024 Orders Only [facility] [place] Health Information Management [address] [place] [id number] Scanning, Provider Social History Tobacco Use Types Packs/Day Years Used Date Smoking Tobacco: Never Smokeless Tobacco: Current Alcohol Use Standard Drinks/Week Comments Yes 0 (1 standard drink = 0.6 oz pur e alcohol) 2 beer a day Sex and Gender Information Value Date Recorded Sex Assigned at Not on file 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 Gender Identity Not on file Sexual Orientation Not on file documented as of this encounter Plan of Treatment Not on file documented as of this encounter Procedures Procedure Name Priority Date/Time Associated Diagnosis Comments CARDIOLOGY DOCUMENT SCAN 05/12/2024 documented in this encounter Results * Cardiology Document Scan (05/12/2024) Anatomical Region Laterality Modality Other us Provider Scanning CV CARDIAC SERVICES PROCEDURES Final Result documented in this encounter Visit Diagnoses Not on filedocumented in this encounter Care Teams Salmon Gillnet Vessel Operator Relationship Specialty Start Date End Date Arcenio Viveros DO PCP - General Internal Medicine 08/18/18 documented as of this encounter
--- OUTSIDE RECORDS SUMMARY | 2024-11-23 13:40 | XMS_ITS | Clinical Summary ---
Author Organization [facility] Address [address] [place] [address] Care Team Providers Care Metal Trimmer Name Role Phone Arcenio Viveros DO Primary Care Provider Source Comments [facility],non-owned Affiliates and Associated Physician Practices is amultiple site organization consisting of ambulatory clinics and hospital sitesin [place], [place] and [place]. This disclosure is being madepursuant to the Care Everywhere program and may not contain all information available regarding this patient. Last updated 17.[facility] Allergies Active Allergy Reactions Criticality Noted Date Comments Penicillins Rash Medium 09/09/2018 Medications * Be aware that medications may not be up to date on this document. Alwaysverify current medications with the patient. allopurinol (Zyloprim) 300 MG tablet Take 100 mg by mouth once daily Active amLODIPine (Norvasc) 5 MG tablet Take 1 (one) tablet by mouth once daily 10/06/2023 Active apixaban (Eliquis) 5 MG tablet Take 1 (one) tablet by mouth 2 times daily 05/07/2024 Active atorvastatin (Lipitor) 40 MG tablet Take 1 (one) tablet by mouth once daily 10/06/2023 Active dilTIAZem coated beads 24hr (Cardizem CD) 300 MG capsule Take 1 (one) capsule by mouth every morning 05/07/2024 Active hydroCHLOROthia zide (Hydrodiuril) 25 MG tablet Take 1 (one) tablet by mouth once daily Active lisinopril (Prinivil; Zestril) 10 MG tablet Take 1 (one) tablet by mouth once daily Active metoprolol succinate XL 24hr (Toprol XL) 50 MG tablet Take 1 (one) tablet by mouth once daily 05/12/2024 Active sotalol (Betapace) 80 MG tablet Take 1 (one) tablet by mouth 2 times daily 05/25/2024 Active Active Problems Problem Noted Date Diagnosed Date Osteoarthrosis 11/21/2021 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/2019 Encounters Date Type Department Care Team Description 08/25/2024 11:00 AM CDT Clinical Support [facility] - Ophthalmology [address] [place] [phone] Yarelis Cordova MD Intermediate stage nonexudative age-related macular degeneration of both eyes (Primary Dx) 08/23/2024 10:10 AM CDT Clinical Support [facility] - Ophthalmology [address] [place] [phone] Yarelis Cordova MD Intermediate stage nonexudative age-related macular degeneration of both eyes (Primary Dx) 08/23/2024 10:05 AM CDT Clinical Support [facility] - Ophthalmology [address] [place] [phone] Yarelis Cordova MD Intermediate stage nonexudative age-related macular degeneration of both eyes (Primary Dx) 08/23/2024 9:45 AM CDT Office Visit [facility] - Ophthalmology [address] [place] [phone] Yarelis Cordova MD Intermediate stage nonexudative age-related macular degeneration of both eyes (Primary Dx); Combined form of senile cataract of both eyes 08/23/2024 Travel from Last 3 Months Family History Medical History Relation Name Comments Glaucoma Mother Blindness Neg Hx Macular Degeneration Neg Hx Relation Name Status Comments Mother Social History Tobacco Use Types Packs/Day Years Used Date Smoking Tobacco: Former Cigarettes Smokeless Tobacco: Never Tobacco Cessation:Counseling Given: Not Answered PHQ-2 Answer Date Recorded Patient Health Questionnaire-2 Score 0 08/23/2024 Sex and Gender Information Value Date Recorded Sex Assigned at Not on file 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 Gender Identity Not on file Sexual Orientation Not on file Plan of Treatment Upcoming Encounters Date Type Department Care Team (Late st Contact Info) Description 02/28/2025 1:45 PM CLINICAL CYTOPATHOLOGIST Office Visit [facility] - Ophthalmology [address] [facility], [place] [address] Yarelis Cordova MD [facility] [facility] [place] [address] Health Maintenance Due Date Last Done Comments DTAP/TDAP/TD VACCINES (1 - Tdap) 1964 PNEUMOCOCCAL VACCINE 50+ (1 of 1 - PCV) 09/20/1995 ZOSTER VACCINE (1 of 2) 09/20/1995 Respiratory Syncytial Virus (RSV) Vaccine Pt: or over 60 yrs (1 - 1-dose 75+ series) 2020 MEDICARE AWV CALENDAR YEAR 2024 COVID-19 VACCINE ( - 2023-2 5 season) 2024 INFLUENZA VACCINE (#1) 2024 DEPRESSION SCREENING Completed 07/23/2024 HEPATITIS B VACCINE Aged Out No longe [...] on patient's age to complete this topic Procedures Procedure Name Priority Date/Time Associated Diagnosis Comments OCT ANGIOGRAPHY Routine 08/25/2024 10:59 AM CDT Intermediate stage nonexudative age-related macular degeneration of both eyes RETINAL ANALYSIS OCT Routine 08/23/2024 10:03 AM CDT Intermediate stage nonexudative age-related macular degeneration of both eyes from Last 3 Months Results * OCT ANGIOGRAPHY (08/25/2024 10:59 AM CDT) Anatomical Region Laterality Modality Head External-Camera Photography Narrative 08/25/2024 11:07 AM CDT Images from the original result were not included. OCTA OS: multiple neovascular fronds in RPE RPE fit but not subfoveal Yarelis Cordova MD OPHTHALMOLOGY SCHED ORD W PACS Final Result * RETINAL ANALYSIS OCT (08/23/2024 10:03 AM CDT) Anatomical Region Laterality Modality Head External-Camera Photography Narrative 08/25/2024 11:08 AM CDT Images from the original result were not included. OCT Macula OD: drusenoid PEDs without IRF or SRF, trace ERM OS: Drusenoid PEDs involving the fovea, without IRF or SRF, resolved area of suspected SHRM region with disruption of ellipsoid zone inferior to fovea, trace ERM OD (top 07/23/2024, bottom 08/23/2024) OS (top 07/23/2024, bottom 08/23/2024) Yarelis Cordova MD OPHTHALMOLOGY SCHED ORD W PACS Final Result from Last [address] [facility] MANAGED MEDICARE ADV [facility] MANAGED MEDICARE ADV Member Subscriber Plan / Payer (Ef fective 2024-Present) Name:Kolton Smith Hamilton Relation to Subscriber:Self Name:Manan Smithgabriel Villasenor Payer ID:[id number] (NAIC) Type:Medicare-Managed Care Address: [place] [phone] Care Teams Metal Trimmer Relationship Specialty Start Date End Date Arcenio Viveros DO [address] [place] [phone] PCP - General Internal Medicine 07/23/24
--- OUTSIDE RECORDS SUMMARY | 2024-11-23 13:40 | XMS_ITS | Encounter Summary ---
Author Organization [facility] Healthcare Address [address] [place] [address] Care Team Providers Care Events Associate Name Role Phone Arcenio Viveros DO Primary Care Provider +1- [phone] Encounter Details Date Type Department Care Team (Late st Contact Info) Description 04/05/2024 Orders Only [facility] [place] Health Information Management [address] [place] [phone] Scanning, Provider Social History Tobacco Use Types Packs/Day Years Used Date Smoking Tobacco: Never Smokeless Tobacco: Current Alcohol Use Standard Drinks/Week Comments Yes 0 (1 standard drink = 0.6 oz pur e alcohol) 2 beer a day Sex and Gender Information Value Date Recorded Sex Assigned at Not on file 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 Gender Identity Not on file Sexual Orientation Not on file documented as of this encounter Plan of Treatment Not on file documented as of this encounter Procedures Procedure Name Priority Date/Time Associated Diagnosis Comments SCAN - RADIOLOGY/IMAGING 04/05/2024 CARDIOLOGY DOCUMENT SCAN 04/05/2024 documented in this encounter Results * Cardiology Document Scan (04/05/2024) Anatomical Region Laterality Modality Other us Provider Scanning CV CARDIAC SERVICES PROCEDURES Final Result * SCAN - RADIOLOGY/IMAGING (04/05/2024) Anatomical Region Laterality Modality Other us Provider Scanning Final Result documented in this encounter Visit Diagnoses Not on filedocumented in this encounter Care Teams Events Associate Relationship Specialty Start Date End Date Arcenio Viveros DO PCP - General Internal Medicine 08/18/18 documented as of this encounter
[2024-11-23 19:17] LABS: Hematocrit 44.5 % (42.0-52.0); Hemoglobin 14.5 g/dL (14.0-18.0); Immature Granulocyte Percent A 0.3 % (0-0.5); Lymphocytes Absolute Auto 2.08 K/mm3 (0.9-3.2); Mean Corpuscular HGB Conc 32.6 g/dl (32-36); Mean Corpuscular Hemoglobin 31.1 pg (26-34); Mean Corpuscular Volume 95.5 fl (80-100); Nucleated Red Blood Cells Absolute Auto 0.000 K/mm3 (0.0-0.012); Nucleated Red Blood Cells Perc 0.0 % (0.0-0.2); Platelet Count Result 192 k/mm3 (150-375); Red Blood Count 4.66 M/mm3 (4.6-6.20); White Blood Count 11.6 K/mm3 (4.5-10.0)
[2024-11-23 19:48] LABS: Alanine Aminotransferase 38 U/L (6-50); Albumin Level 4.1 g/dL (3.5-5.1); Alkaline Phosphatase 74 U/L (38-126); Anion Gap 8 mmol/L (4-12); Aspartate Amino Transferase 48 U/L (17-59); Bilirubin,Total 0.8 mg/dL (0.2-1.3); Blood Urea Nitrogen 19 mg/dL (9-20); Calcium 9.0 mg/dL (8.4-10.2); Carbon Dioxide 28 mmol/L (22-30); Chloride 103 mmol/L (98-107); Estimated Glomerular Filt Rate > 60; Glucose 89 mg/dL (65-110); Potassium 4.0 mmol/L (3.4-5.0); Sodium 139 mmol/L (137-145); Total Protein 7.1 g/dL (6.3-8.2)
[2024-11-23 20:09] LABS: Hemoglobin A1C 5.5 % (<5.7)
[2024-11-23 20:24] LABS: Thyroid Stimulating Hormone 1.610 uIU/mL (0.465-4.680)
== END 2024-11-23 13:28 | disposition home or self-care (01) ==
LOC: ANHGOSHLAB 13:28
PROVIDERS: PCP Clinical Nurse Specialist; Visit Provider Clinical Nurse Specialist
DX: I10 Essential (primary) hypertension (principal); I35.0 Nonrheumatic aortic (valve) stenosis; I48.91 Unspecified atrial fibrillation; R73.01 Impaired fasting glucose
CPT/HCPCS: 36415; 80053; 83036; 84443; 85025